=== PATIENT | male | born 1970 | race Caucasian/White ===

== ENCOUNTER 2017-07-24 07:53 | Emergency (ER) | payer BC ==
[2017-07-24] MEDS ORDERED: Acetaminophen/oxyCODONE 325-10 MG Tab PO ONE (08:22)
--- NOTE | 2017-07-24 08:28 | EDM.PDOC ---
ED HPI GENERAL MEDICAL PROBLEM - General Chief Complaint: Lower Extremity Injury/Pain Stated Complaint: RIGHT FOOT PAIN Time Seen by Provider: 07/24/17 08:20 - History of Present Illness INITIAL COMMENTS - FREE TEXT/NARRATIVE: HISTORY AND PHYSICAL: History of present illness: The patient is a 47-year-old male with a known history of a transmetatarsal amputation in the past of the right foot who has chronic pain issues with respect to that and follows at [facility] with Dr. Emanuel; he was referred to the pain clinic at [facility] and has not been able to connect there and presents today because he ran out of his oxycodone earlier than his prescription refill. Patient says that his provider has been clear that he will not renew the prescription earlier and he is here for some pain relief. He says he has not been sleeping last couple of days due to the pain. He has used other medications in the past such as Lyrica and Neurontin and none of those have worked. He has no new injury to the foot and no systemic complaints Review of systems: As per history of present illness and below otherwise all systems reviewed and negative. Past medical history: As per history of present illness and as reviewed below otherwise noncontributory. Surgical history: As per history of present illness and as reviewed below otherwise noncontributory. Social history: No reported history of drug or alcohol abuse. Family history: As per history of present illness and as reviewed below otherwise noncontributory. Physical exam: Gen.: Well-developed well-nourished man who is nontoxic and vital signs have been reviewed by me HEENT: Atraumatic, normocephalic, negative for conjunctival pallor or scleral icterus, mucous membranes moist, throat clear, neck supple, nontender, trachea midline. Lungs: Clear to auscultation, breath sounds equal bilaterally, chest nontender. Heart: S1S2, regular rate and rhythm no overt murmurs Abdomen: Soft, nondistended, nontender. NABS Pelvis: Deferred Genitourinary: Deferred. Rectal: Deferred. Extremities: Atraumatic with full range of motion of all extremities with the exception of the right foot where there is a visible prior transmetatarsal amputation and the scar there is thickened with callus but no erythema warmth fluctuance or skin breakdown is visualized. Pulses are good and color is good otherwise. There is diffuse tenderness of the foot without any one specific area of soft tissue defect or deformity. No crepitus. The legs are, negative for cords or calf pain. Neurovascular unremarkable. Neuro: Awake, alert, oriented. Cranial nerves II through XII unremarkable. Cerebellum unremarkable. Motor and sensory unremarkable throughout. Exam nonfocal. Diagnostics: [] Therapeutics: Percocet The patient tells me that he does have an appointment with his provider on Thursday and I have been very clear with him that I cannot write prescriptions for chronic pain patients and that he would need to have a discussion with his provider about this. In the interim until he can get connected with the pain physician is provider at [facility] is functioning as his pain doctor and needs to be the one writing prescriptions. The patient states understanding and I told him that I can give him a Percocet here to get through the next couple of hours and we will try to move his appointment up but advised the patient that if we are unable to do so that he should keep his appointment on Thursday Impression: Chronic right foot pain Definitive disposition and diagnosis as appropriate pending reevaluation and review of above. Right Foot Phantom Pain Pain Score (Numeric/FACES): 10 - Related Data Allergies Allergy/AdvReac Type Severity Reaction Status Date / Time hydromorphone [From Dilaudid] Allergy Hallucinati Verified 07/24/17 08:13 ons Home Meds: Home Meds Hydrochlorothiazide 25 mg PO DAILY 03/01/14 [History] Lisinopril 10 mg PO DAILY 03/01/14 [History] amLODIPine [Norvasc] 10 mg PO DAILY 03/01/14 [History] metFORMIN HCl [Metformin HCl ER] 500 mg PO DAILY 03/01/14 [History] oxyCODONE HCl [Oxycontin] 15 mg PO Q6HR PRN 03/01/14 [History] Carvedilol [Carvedilol] 25 mg PO BID 07/24/17 [History] Past Medical History HEENT History: Reports: None Cardiovascular History: Reports: Hypertension Respiratory History: Reports: None Gastrointestinal History: Reports: None Genitourinary History: Reports: None Musculoskeletal History: Reports: Amputation, Arthritis, Fracture Other Musculoskeletal History: osteomyelitis Neurological History: Reports: Concussion, Head Trauma Psychiatric History: Reports: Addiction, Anxiety Endocrine/Metabolic History: Reports: Diabetes, Type II Dermatologic History: Reports: Cellulitis, Chronic Cellulitis - Infectious Disease History 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 - Past Surgical History Head Surgeries/Procedures: Reports: None Musculoskeletal Surgical History: Reports: Amputation Other Musculoskeletal Surgeries/Procedures:: right transverse metatarsal amputation Social & Family History - Family History HEENT: Reports: None - Tobacco Use Smoking Status *Q: Former Smoker Years of Tobacco use: 20 Used Tobacco, but Quit: No Second Hand Smoke Exposure: No - Alcohol Use Days Per Week of Alcohol Use: 0 - Recreational Drug Use Recreational Drug Use: No Review of Systems - Review of Systems Review Of Systems: ROS reveals no pertinent complaints other than HPI. ED EXAM, GENERAL - Physical Exam Exam: See Below (See dictation) Course - Vital Signs Last Recorded V/S: Last Vital Signs Temp 36.7 C 07/24/17 08:15 Pulse 88 07/24/17 08:15 Resp 18 07/24/17 08:15 BP 183/99 H 07/24/17 08:15 Pulse Ox 97 07/24/17 08:15 - Orders/Labs/Meds Orders: Active Orders 24 hr Category Date Time Status Acetaminophen/oxyCODONE [Percocet 325-10 MG] Med 07/24/17 08:22 Once 1 tab PO ONETIME ONE Departure - Departure Time of Disposition: 08:27 Disposition: Home, Self-Care 01 Condition: Good Clinical Impression: Chronic foot pain Qualifiers: Laterality: right Qualified Code(s): M79.671 - Pain in right foot; G89.29 - Other chronic pain; G89.29 - Other chronic pain - Discharge Information Referrals: Tc Emanuel MD [Primary Care Provider] - Additional Instructions: The following information is given to patients seen in the emergency department who are being discharged to home. This information is to outline your options for follow-up care. We provide all patients seen in our emergency department with a follow-up referral. The need for follow-up, as well as the timing and circumstances, are variable depending upon the specifics of your emergency department visit. If you don't have a primary care physician on staff, we will provide you with a referral. We always advise you to contact your personal physician following an emergency department visit to inform them of the circumstance of the visit and for follow-up with them and/or the need for any referrals to a consulting specialist. The emergency department will also refer you to a specialist when appropriate. This referral assures that you have the opportunity for followup care with a specialist. All of these measure are taken in an effort to provide you with optimal care, which includes your followup. Under all circumstances we always encourage you to contact your private physician who remains a resource for coordinating your care. When calling for followup care, please make the office aware that this follow-up is from your recent emergency room visit. If for any reason you are refused follow-up, please contact the [facility] emergency department at and ask to speak to the emergency department charge nurse. [address] [place] [address] Please keep your appointment with your provider at [facility] on Thursday and return to ER as needed and as discussed. - My Orders Last 24 Hours: My Active Orders 07/24/17 08:22 Acetaminophen/oxyCODONE [Percocet 325-10 MG] 1 tab PO ONETIME ONE - Assessment/Plan Last 24 Hours: My Active Orders 07/24/17 08:22 Acetaminophen/oxyCODONE [Percocet 325-10 MG] 1 tab PO ONETIME ONE
[2017-07-24 08:39] VITALS: BP 159/85
== END 2017-07-24 08:41 | disposition home or self-care (01) ==
LOC: MW.ED 07:53
DX: G89.29 Other chronic pain (principal); M79.671 Pain in right foot; I10 Essential (primary) hypertension; E11.9 Type 2 diabetes mellitus without complications; Z79.84 Long term (current) use of oral hypoglycemic drugs; Z79.899 Other long term (current) drug therapy; Z88.5 Allergy status to narcotic agent; Z87.891 Personal history of nicotine dependence; Z98.890 Other specified postprocedural states
CPT/HCPCS: 99282; A9270; 99283

== ENCOUNTER 2017-08-16 10:47 | Emergency (ER) | payer BC ==
--- NOTE | 2017-08-16 11:12 | EDM.PDOC ---
ED HPI GENERAL MEDICAL PROBLEM - General Chief Complaint: Lower Extremity Injury/Pain Stated Complaint: FOOT PAIN Time Seen by Provider: 08/16/17 11:04 - History of Present Illness INITIAL COMMENTS - FREE TEXT/NARRATIVE: HISTORY AND PHYSICAL: History of present illness: Patient is a 47-year-old male with history diabetes who's had right forefoot amputation and presents with concern of discoloration and discomfort of the fourth digit of the left foot this started with a blister 1-2 weeks prior he is here just for screening pending follow-up with his private doctor and podiatry as discussed there's been no fever chills nausea vomiting or other complaints. Review of systems: As per history of present illness and below otherwise all systems reviewed and negative. Past medical history: As per history of present illness and as reviewed below otherwise noncontributory. Surgical history: As per history of present illness and as reviewed below otherwise noncontributory. Social history: No reported history of drug or alcohol abuse. Family history: As per history of present illness and as reviewed below otherwise noncontributory. Physical exam: HEENT: Atraumatic, normocephalic, pupils reactive, negative for conjunctival pallor or scleral icterus, mucous membranes moist, throat clear, neck supple, nontender, trachea midline. Lungs: Clear to auscultation, breath sounds equal bilaterally, chest nontender. Heart: S1S2, regular, negative for clicks, rubs, or JVD. Abdomen: Soft, nondistended, nontender. Negative for masses or hepatosplenomegaly. Negative for costovertebral tenderness. Pelvis: Stable nontender. Genitourinary: Deferred. Rectal: Deferred. Extremities: Amputation right forefoot noted left foot he has a fourth digit it is discoloration and excoriated area on the volar aspect of the tip of the fourth digit neurovascular exam is unremarkable there is no malodor no fluctuance minimal erythema Neuro: Awake, alert, oriented. Cranial nerves II through XII unremarkable. Cerebellum unremarkable. Motor and sensory unremarkable throughout. Exam nonfocal. Diagnostics: CBC CMP x-ray left foot Therapeutics: None Impression: #1 diabetic foot Definitive disposition and diagnosis as appropriate pending reevaluation and review of above. Left 3-Middle finger Pain Score (Numeric/FACES): 8 - Related Data Allergies Allergy/AdvReac Type Severity Reaction Status Date / Time hydromorphone [From Dilaudid] Allergy Hallucinati Verified 08/16/17 11:08 ons Home Meds: Home Meds Hydrochlorothiazide 25 mg PO DAILY 03/01/14 [History] Lisinopril 10 mg PO DAILY 03/01/14 [History] amLODIPine [Norvasc] 10 mg PO DAILY 03/01/14 [History] metFORMIN HCl [Metformin HCl ER] 500 mg PO DAILY 03/01/14 [History] oxyCODONE HCl [Oxycontin] 15 mg PO Q6HR PRN 03/01/14 [History] Carvedilol [Carvedilol] 25 mg PO BID 07/24/17 [History] Past Medical History HEENT History: Reports: None Cardiovascular History: Reports: Hypertension Respiratory History: Reports: None Gastrointestinal History: Reports: None Genitourinary History: Reports: None Musculoskeletal History: Reports: Amputation, Arthritis, Fracture Other Musculoskeletal History: osteomyelitis Neurological History: Reports: Concussion, Head Trauma Psychiatric History: Reports: Addiction, Anxiety Endocrine/Metabolic History: Reports: Diabetes, Type II Dermatologic History: Reports: Cellulitis, Chronic Cellulitis - Infectious Disease History 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 - Past Surgical History Head Surgeries/Procedures: Reports: None Musculoskeletal Surgical History: Reports: Amputation Other Musculoskeletal Surgeries/Procedures:: right transverse metatarsal amputation Social & Family History - Family History Family Medical History: Noncontributory HEENT: Reports: None - Tobacco Use Smoking Status *Q: Former Smoker Years of Tobacco use: 20 Used Tobacco, but Quit: No Second Hand Smoke Exposure: No - Caffeine Use Caffeine Use: Reports: None - Alcohol Use Days Per Week of Alcohol Use: 0 - Recreational Drug Use Recreational Drug Use: No Review of Systems - Review of Systems Review Of Systems: ROS reveals no pertinent complaints other than HPI. ED EXAM, GENERAL - Physical Exam Exam: See Below (See dictation) Course - Vital Signs Last Recorded V/S: Last Vital Signs Temp 35.9 C 08/16/17 11:03 Pulse 63 08/16/17 11:03 Resp 18 08/16/17 11:03 BP 132/81 08/16/17 11:03 Pulse Ox 96 08/16/17 11:03 - Orders/Labs/Meds Orders: Active Orders 24 hr Category Date Time Status Foot 2V Lt [CR] Stat Exams 08/16/17 11:07 Ordered CBC WITH AUTO DIFF [HEME] Stat Lab 08/16/17 11:06 Ordered COMPREHENSIVE METABOLIC PN,CMP [CHEM] Stat Lab 08/16/17 11:06 Ordered Departure - Departure Time of Disposition: 11:11 Disposition: Home, Self-Care 01 Condition: Good Clinical Impression: Diabetic foot - Discharge Information Referrals: Tc Emanuel MD [Primary Care Provider] - Additional Instructions: The following information is given to patients seen in the emergency department who are being discharged to home. This information is to outline your options for follow-up care. We provide all patients seen in our emergency department with a follow-up referral. The need for follow-up, as well as the timing and circumstances, are variable depending upon the specifics of your emergency department visit. If you don't have a primary care physician on staff, we will provide you with a referral. We always advise you to contact your personal physician following an emergency department visit to inform them of the circumstance of the visit and for follow-up with them and/or the need for any referrals to a consulting specialist. The emergency department will also refer you to a specialist when appropriate. This referral assures that you have the opportunity for followup care with a specialist. All of these measure are taken in an effort to provide you with optimal care, which includes your followup. Under all circumstances we always encourage you to contact your private physician who remains a resource for coordinating your care. When calling for followup care, please make the office aware that this follow-up is from your recent emergency room visit. If for any reason you are refused follow-up, please contact the [facility] emergency department at and asked to speak to the emergency department charge nurse. [facility] - Podiatry [address] [place] [id number] Fax: [phone] Bactrim clindamycin as prescribed follow-up private medical doctor/podiatry 1-2 days return as needed as discussed - My Orders Last 24 Hours: My Active Orders 08/16/17 11:06 CBC WITH AUTO DIFF [HEME] Stat COMPREHENSIVE METABOLIC PN,CMP [CHEM] Stat 08/16/17 11:07 Foot 2V Lt [CR] Stat - Assessment/Plan Last 24 Hours: My Active Orders 08/16/17 11:06 CBC WITH AUTO DIFF [HEME] Stat COMPREHENSIVE METABOLIC PN,CMP [CHEM] Stat 08/16/17 11:07 Foot 2V Lt [CR] Stat
[2017-08-16 11:53] LABS: CHLORIDE,CL 103 mmol/L (98-110); SODIUM,NA 138 mmol/L (136-146)
[2017-08-16 12:53] VITALS: BP 138/79
--- NOTE | 2017-08-17 16:06 | CR ---
EXAM DATE: 08/16/17 PATIENT'S AGE: 47 Patient: SANFORD GALVAN Facility: [place], [place] Site . Site : [id number] Study: XRay Extremity Left foot [id number]/28/[id number] 11:45:31 AM Ordering Physician: Dane Ruiz Final Report: INDICATION: Pain. Technique two-views. FINDINGS: There is no fracture identified. Mild swelling of the 3rd digit, nonspecific. Variable degenerative narrowing of the MRI TEP joints, especially 1st and 2nd. Mild soft tissue swelling dorsum of the foot, nonspecific. IMPRESSION: No acute bony abnormality visualized on these portable views. Consider complete left foot radiographic series, if indicated. Mild soft tissue swelling of the 3rd digit and dorsum of the foot. Degenerative narrowing at the 1st and 2nd MTP joints. Dictated by Raleigh Henry MD @ Aug 16 2017 12:02PM (Electronic Signature) Report Signed by Proxy. MARIANGEL
== END 2017-08-16 12:30 | disposition home or self-care (01) ==
LOC: MW.ED 10:47
DX: E11.621 Type 2 diabetes mellitus with foot ulcer (principal); I10 Essential (primary) hypertension; Z88.5 Allergy status to narcotic agent; Z79.899 Other long term (current) drug therapy; Z87.891 Personal history of nicotine dependence; Z89.431 Acquired absence of right foot
CPT/HCPCS: 36415; 73620-26-LT; 73620-LT; 80053; 85025; 99283

== ENCOUNTER 2018-12-19 15:13 | Emergency (ER) | payer BC ==
[2018-12-19] MEDS ORDERED: Sodium Chloride 0.9% 10 ML Syringe FLUSH PRN (15:22)
[2018-12-19] MEDS ORDERED: Sodium Chloride 0.9% 2.5 ML Syringe FLUSH PRN (15:22)
--- NOTE | 2018-12-19 15:35 | EDM.PDOC ---
ED HPI GENERAL MEDICAL PROBLEM - General Chief Complaint: Skin Complaint Stated Complaint: INFECTION AT SITE OF RT FOOT AMPUTATION Time Seen by Provider: 12/19/18 15:17 Source of Information: Reports: Patient History Limitations: Reports: No Limitations - History of Present Illness INITIAL COMMENTS - FREE TEXT/NARRATIVE: HISTORY AND PHYSICAL: History of present illness: Patient is a 48-year-old male who presents to the emergency room with complaints of infection to the right foot. 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 Typically does wear a prosthetic. Yesterday he noted some redness around a callus that he typically has. This morning he was able to express some drainage from the calloused area. Patient is a type II diabetic, stating that his blood sugars have been "really good". Patient denies any fever , chills, headache, change in vision, syncope or near syncope. Denies any chest pain, back pain, shortness of breath or cough. Denies any abdominal pain, nausea , vomiting, diarrhea, constipation or dysuria. Has not noted any blood in urine or stool. Patient has been eating and drinking appropriately. Review of systems: As per history of present illness and below otherwise all systems reviewed and negative. Past medical history: As per history of present illness and as reviewed below otherwise noncontributory. Surgical history: As per history of present illness and as reviewed below otherwise noncontributory. Social history: See social history for further information Family history: As per history of present illness and as reviewed below otherwise noncontributory. Physical exam: General: Well-developed and well-nourished 48-year-old male. Alert and oriented. Nontoxic appearing and in no acute distress. HEENT: Atraumatic, normocephalic, pupils equal and reactive bilaterally, negative for conjunctival pallor or scleral icterus, mucous membranes moist, TMs normal bilaterally, throat clear, neck supple, nontender, trachea midline. No drooling or trismus noted. No meningeal signs. No hot potato voice noted. Lungs: Clear to auscultation, breath sounds equal bilaterally, chest nontender. Heart: S1S2, regular rate and rhythm without overt murmur Abdomen: Soft, nondistended, nontender. Negative for masses or hepatosplenomegaly. Negative for costovertebral tenderness. Pelvis: Stable nontender. Genitourinary: Deferred. Rectal: Deferred. Skin: Mid foot amputation to the right. He does have a linear callus to the plantar surface of the distal foot. There is some surrounding erythema. Otherwise skin is intact, warm, dry. No lesions or rashes noted. Extremities: Atraumatic, moves all extremities per self without difficulty or deficits, negative for cords or calf pain. Neurovascular unremarkable. Neuro: Awake, alert, oriented. Cranial nerves II through XII unremarkable. Cerebellum unremarkable. Motor and sensory unremarkable throughout. Exam nonfocal. Notes: X-ray shows amputation of the 1st through 5th toes at the level of the proximal/ mid metatarsals. No acute findings. Lab work is unremarkable. Patient states he would like to be discharged home with oral antibiotics. He states he will follow up with Dr. Storm next week. Signs and symptoms that would prompt him to return to the emergency room were reviewed and discussed. Supportive care measures were reviewed and discussed. Voices understanding and is agreeable to plan of care. Denies any further questions or concerns at this time. Diagnostics: CBC, CMP, lactic, foot x-ray, wound culture, blood culture Therapeutics: None Prescription: Clindamycin [place] Impression: Diabetic foot infection Plan: 1. Keep your skin clean and dry. Continue to monitor for signs of improvement 2. Take the antibiotic as directed. 3. Follow up with podiatry as we discussed. Return to the ED as needed and as discussed. Definitive disposition and diagnosis as appropriate pending reevaluation and review of above. right foot Pain Score (Numeric/FACES): 9 - Related Data Allergies Allergy/AdvReac Type Severity Reaction Status Date / Time hydromorphone [From Dilaudid] Allergy Hallucinati Verified 08/16/17 11:08 ons Home Meds: Home Meds Lisinopril 10 mg PO DAILY 03/01/14 [History] amLODIPine [Norvasc] 10 mg PO DAILY 03/01/14 [History] hydroCHLOROthiazide [Hydrochlorothiazide] 25 mg PO DAILY 03/01/14 [History] metFORMIN HCl [Metformin ER Osmotic] 500 mg PO DAILY 03/01/14 [History] Carvedilol 25 mg PO BID 07/24/17 [History] traMADol HCl [Tramadol HCl] 50 mg PO Q6H PRN 08/16/17 [History] Acetaminophen/HYDROcodone [[place] 325-5 MG] 1 dose PO Q4H PRN #15 tablet [Rx] Clindamycin HCl [Cleocin HCl] 300 mg PO TID 10 Days #30 capsule 12/19/18 [Rx] Past Medical History HEENT History: Reports: None Cardiovascular History: Reports: Hypertension Respiratory History: Reports: None Gastrointestinal History: Reports: None Genitourinary History: Reports: None Musculoskeletal History: Reports: Amputation, Arthritis, Fracture Other Musculoskeletal History: osteomyelitis Neurological History: Reports: Concussion, Head Trauma Psychiatric History: Reports: Addiction, Anxiety Endocrine/Metabolic History: Reports: Diabetes, Type II Dermatologic History: Reports: Cellulitis, Chronic Cellulitis - Infectious Disease History 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 - Past Surgical History Head Surgeries/Procedures: Reports: None Musculoskeletal Surgical History: Reports: Amputation Other Musculoskeletal Surgeries/Procedures:: right transverse metatarsal amputation Social & Family History - Family History Family Medical History: Noncontributory HEENT: Reports: None - Caffeine Use Caffeine Use: Reports: None ED ROS GENERAL - Review of Systems Review Of Systems: ROS reveals no pertinent complaints other than HPI. ED EXAM, SKIN/RASH Exam: See Below (See dictation) Course - Vital Signs Last Recorded V/S: Last Vital Signs Temp 97.7 F 12/19/18 15:28 Pulse 81 12/19/18 15:28 Resp 16 12/19/18 15:28 BP 148/87 H 12/19/18 15:28 Pulse Ox 98 12/19/18 15:28 - Orders/Labs/Meds Orders: Active Orders 24 hr Category Date Time Status CULTURE BLOOD [BC] Stat Lab 12/19/18 15:39 Received CULTURE BLOOD [BC] Stat Lab 12/19/18 15:51 Ordered CULTURE WOUND [RM] Stat Lab 12/19/18 15:48 Ordered Sodium Chloride 0.9% [Saline Flush] Med 12/19/18 15:22 Active 10 ml FLUSH ASDIRECTED PRN Sodium Chloride 0.9% [Saline Flush] Med 12/19/18 15:22 Active 2.5 ml FLUSH ASDIRECTED PRN Blood Culture x2 Reflex Set [OM.PC] Stat Oth 12/19/18 15:51 Ordered Saline Lock Insert [OM.PC] Stat Oth 12/19/18 15:22 Ordered Medication Orders Sodium Chloride (Saline Flush) 10 ml FLUSH ASDIRECTED PRN PRN Reason: Keep Vein Open Sodium Chloride (Saline Flush) 2.5 ml FLUSH ASDIRECTED PRN PRN Reason: Keep Vein Open Labs: Laboratory Tests 12/19/18 12/19/18 12/19/18 Range/Units 15:39 15:39 15:39 WBC 8.73 (4.0-11.0) K/uL RBC 4.46 L (4.50-5.90) M/uL Hgb 12.9 L (13.0-17.0) g/dL Hct 38.8 (38.0-50.0) % MCV 87.0 (80.0-98.0) fL MCH 28.9 (27.0-32.0) pg MCHC 33.2 (31.0-37.0) g/dL RDW Std Deviation 40.3 (28.0-62.0) fl RDW Coeff of [place] 13 (11.0-15.0) % Plt Count 234 (150-400) K/uL MPV 10.20 (7.40-12.00) fL Neut % (Auto) 56.3 (48.0-80.0) % Lymph % (Auto) 30.1 (16.0-40.0) % [place] % (Auto) 11.2 (0.0-15.0) % Eos % (Auto) 1.8 (0.0-7.0) % Baso % (Auto) 0.6 (0.0-1.5) % Neut # (Auto) 4.9 (1.4-5.7) K/uL Lymph # (Auto) 2.6 H (0.6-2.4) K/uL [place] # (Auto) 1.0 H (0.0-0.8) K/uL Eos # (Auto) 0.2 (0.0-0.7) K/uL Baso # (Auto) 0.1 (0.0-0.1) K/uL Nucleated RBC % 0.0 /100WBC Nucleated RBCs # 0 K/uL Lactate 1.0 (0.20-2.00) mmol/L Sodium 140 (136-148) mmol/L Potassium 3.4 L (3.5-5.1) mmol/L Chloride 102 (98-107) mmol/L Carbon Dioxide 32.9 H (21.0-32.0) mmol/L BUN 24 H (7.0-18.0) mg/dL Creatinine 0.8 (0.8-1.3) mg/dL Est Cr Clr Drug Dosing 115.33 mL/min Estimated GFR (MDRD) > 60.0 ml/min Glucose 131 H (74-106) mg/dL Calcium 9.0 (8.5-10.1) mg/dL Total Bilirubin 0.4 (0.2-1.0) mg/dL AST 26 (15-37) IU/L ALT 55 (14-63) IU/L Alkaline Phosphatase 114 (46-116) U/L Total Protein 7.7 (6.4-8.2) g/dL Albumin 3.8 (3.4-5.0) g/dL Globulin 3.9 (2.6-4.0) g/dL Albumin/Globulin Ratio 1.0 (0.9-1.6) Meds: Medications Generic Name Dose Route Start Last Admin Trade Name Freq PRN Reason Stop Dose Admin Sodium Chloride 10 ml 12/19/18 15:22 Saline Flush FLUSH ASDIRECTED PRN Keep Vein Open Sodium Chloride 2.5 ml 12/19/18 15:22 Saline Flush FLUSH ASDIRECTED PRN Keep Vein Open Departure - Departure Time of Disposition: 16:10 Disposition: Home, Self-Care 01 Clinical Impression: Diabetic foot infection - Discharge Information Prescriptions: Acetaminophen/HYDROcodone [[place] 325-5 MG] 1 dose PO Q4H PRN #15 tablet PRN Reason: Pain Clindamycin HCl [Cleocin HCl] 300 mg PO TID 10 Days #30 capsule Instructions: Cellulitis, Adult, [id number] Referrals: Tc Emanuel MD [Primary Care Provider] - Forms: ED Department Discharge Additional Instructions: The following information is given to patients seen in the emergency department who are being discharged to home. This information is to outline your options for follow-up care. We provide all patients seen in our emergency department with a follow-up referral. The need for follow-up, as well as the timing and circumstances, are variable depending upon the specifics of your emergency department visit. If you don't have a primary care physician on staff, we will provide you with a referral. We always advise you to contact your personal physician following an emergency department visit to inform them of the circumstance of the visit and for follow-up with them and/or the need for any referrals to a consulting specialist. The emergency department will also refer you to a specialist when appropriate. This referral assures that you have the opportunity for follow-up care with a specialist. All of these measure are taken in an effort to provide you with optimal care, which includes your follow-up. Under all circumstances we always encourage you to contact your private physician who remains a resource for coordinating your care. When calling for follow-up care, please make the office aware that this follow-up is from your recent emergency room visit. If for any reason you are refused follow-up, please contact the [facility] Emergency Department at and asked to speak to the emergency department charge nurse. [facility] [address] [place] [id number] [address] 1. Keep your skin clean and dry. Continue to monitor for signs of improvement 2. Take the antibiotic as directed. 3. Follow up with podiatry as we discussed. Return to the ED as needed and as discussed. - My Orders Last 24 Hours: My Active Orders 12/19/18 15:22 Sodium Chloride 0.9% [Saline Flush] 10 ml FLUSH ASDIRECTED PRN Sodium Chloride 0.9% [Saline Flush] 2.5 ml FLUSH ASDIRECTED PRN Saline Lock Insert [OM.PC] Stat 12/19/18 15:39 CULTURE BLOOD [BC] Stat 12/19/18 15:48 CULTURE WOUND [RM] Stat 12/19/18 15:51 CULTURE BLOOD [BC] Stat Blood Culture x2 Reflex Set [OM.PC] Stat - Assessment/Plan Last 24 Hours: My Active Orders 12/19/18 15:22 Sodium Chloride 0.9% [Saline Flush] 10 ml FLUSH ASDIRECTED PRN Sodium Chloride 0.9% [Saline Flush] 2.5 ml FLUSH ASDIRECTED PRN Saline Lock Insert [OM.PC] Stat 12/19/18 15:39 CULTURE BLOOD [BC] Stat 12/19/18 15:48 CULTURE WOUND [RM] Stat 12/19/18 15:51 CULTURE BLOOD [BC] Stat Blood Culture x2 Reflex Set [OM.PC] Stat
[2018-12-19 15:42] VITALS: BP 148/87
--- NOTE | 2018-12-19 15:49 | CR ---
Indication: Foot infection. Technique: Three views of the right foot were obtained. Comparison: None Findings: Amputation of the 1st through 5th metatarsals is identified at the level of the proximal/mid metatarsals. No bone erosions are identified. Mild degenerative changes are seen. Impression: Amputation of the 1st through 5th toes at the level of the proximal/mid metatarsals. Dictated by Kim Mathew MD @ Dec 19 2018 3:46PM Signed by Dr. Kim Mathew @ Dec 19 2018 3:47PM
[2018-12-19 16:25] LABS: CHLORIDE,CL 102 mmol/L (98-107); SODIUM,NA 140 mmol/L (136-148)
== END 2018-12-19 16:42 | disposition home or self-care (01) ==
LOC: MW.ED 15:13
DX: E11.628 Type 2 diabetes mellitus with other skin complications (principal); L08.9 Local infection of the skin and subcutaneous tissue, unspecified; L84 Corns and callosities; I10 Essential (primary) hypertension; M19.90 Unspecified osteoarthritis, unspecified site; Z89.431 Acquired absence of right foot; Z79.84 Long term (current) use of oral hypoglycemic drugs; Z88.8 Allergy status to other drugs, medicaments and biological substances; Z79.899 Other long term (current) drug therapy
CPT/HCPCS: 36415; 73630-26-RT; 73630-RT; 80053; 83605; 85025; 87040; 87070; 99283; 99283-25

== ENCOUNTER 2019-07-25 13:57 | Emergency (ER) | payer BC ==
[2019-07-25] MEDS ORDERED: Acetaminophen/Codeine 300-30 MG Tab PO ONE (15:18)
--- NOTE | 2019-07-25 15:38 | EDM.PDOC ---
ED HPI GENERAL MEDICAL PROBLEM - General Chief Complaint: Lower Extremity Injury/Pain Stated Complaint: COMPLICATION IN RT FOOT AMP Time Seen by Provider: 07/25/19 15:14 Source of Information: Reports: Patient History Limitations: Reports: No Limitations - History of Present Illness INITIAL COMMENTS - FREE TEXT/NARRATIVE: HISTORY AND PHYSICAL: History of present illness: Patient is a 49-year-old male who presents to the emergency room with concerns of an infection to the right lower extremity. In 2011 patient had a midfoot amputation due to diabetic complications. 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 He does pretty frequently get an infection to the distal aspect of the foot where he has a hard callus and fissure. He states he has not been on antibiotics in several months for any foot related infections. Last night he noticed a blister which he states popped and he was able to express some purulent drainage from the site. He does take tramadol for his chronic pain but states the area is more painful than normal and is concerned he needs antibiotics. He denies any new injury, trauma or falls. He denies any fever, chills, headache, change in vision, syncope or near syncope. Denies any chest pain, back pain, shortness of breath or cough. Denies any GI or symptoms. Patient has been eating and drinking appropriately. Review of systems: As per history of present illness and below otherwise all systems reviewed and negative. Past medical history: As per history of present illness and as reviewed below otherwise noncontributory. Surgical history: As per history of present illness and as reviewed below otherwise noncontributory. Social history: See social history for further information Family history: As per history of present illness and as reviewed below otherwise noncontributory. Physical exam: General: Well-developed and well-nourished 49-year-old male. Alert and oriented. Nontoxic-appearing and in no acute distress. HEENT: Atraumatic, normocephalic, pupils equal and reactive bilaterally, negative for conjunctival pallor or scleral icterus, mucous membranes moist, TMs normal bilaterally, throat clear, neck supple, nontender, trachea midline. No drooling or trismus noted. No meningeal signs. No hot potato voice noted. Lungs: Clear to auscultation, breath sounds equal bilaterally, chest nontender. Heart: S1S2, regular rate and rhythm without overt murmur Abdomen: Soft, nondistended, nontender. Skin: See extremity for details. Intact, warm, dry. No lesions or rashes noted. Extremities: Distal mid foot amputation (patient norm) -with hard callus noted to the bottom aspect of the distal foot with circular area of mild redness and tenderness approximately the size of a dime (appears like an old irritated ulceration). Moves all extremities per self without difficulty or deficits, negative for cords or calf pain. Neurovascular unremarkable. Neuro: Awake, alert, oriented. Cranial nerves II through XII unremarkable. Cerebellum unremarkable. Motor and sensory unremarkable throughout. Exam nonfocal. Notes: VSS, afebrile. X-ray shows no acute findings. We discussed needing to follow- up with podiatry for repeat evaluation and monitoring. Supportive care measures were reviewed and discussed. Voices understanding and is agreeable to plan of care. Denies any further questions or concerns at this time. Diagnostics: X-ray Therapeutics: Tylnol #3 Prescription: Keflex and [place] Impression: Diabetic foot infection Plan: 1. Keep the skin clean and dry. Continue to monitor for signs of improvement. Follow up with podiatry as we discussed. 2. Medications as prescribed. 3. Return to the ED as needed as discussed. Definitive disposition and diagnosis as appropriate pending reevaluation and review of above. R foot Pain Score (Numeric/FACES): 10 - Related Data Allergies Allergy/AdvReac Type Severity Reaction Status Date / Time hydromorphone [From Dilaudid] Allergy Hallucinati Verified 07/25/19 14:14 ons Home Meds: Home Meds Lisinopril 10 mg PO DAILY 03/01/14 [History] amLODIPine [Norvasc] 10 mg PO DAILY 03/01/14 [History] hydroCHLOROthiazide [Hydrochlorothiazide] 25 mg PO DAILY 03/01/14 [History] metFORMIN HCl [Metformin ER Osmotic] 500 mg PO DAILY 03/01/14 [History] carvediloL [Carvedilol] 25 mg PO BID 07/24/17 [History] traMADol HCl [Tramadol HCl] 50 mg PO Q6H PRN 08/16/17 [History] Acetaminophen/HYDROcodone [[place] 325-5 MG] 1 dose PO Q4H PRN #15 tablet [Rx] Clindamycin HCl [Cleocin HCl] 300 mg PO TID 10 Days #30 capsule 12/19/18 [Rx] Acetaminophen/HYDROcodone [[place] 325-5 MG] 1 dose PO Q4H #20 tablet 07/25/19 [Rx ] Clindamycin HCl 300 mg PO TID 7 Days #21 capsule 07/25/19 [Rx] Past Medical History HEENT History: Reports: None Cardiovascular History: Reports: Hypertension Respiratory History: Reports: None Gastrointestinal History: Reports: None Genitourinary History: Reports: None Musculoskeletal History: Reports: Amputation, Arthritis, Fracture Other Musculoskeletal History: osteomyelitis Neurological History: Reports: Concussion, Head Trauma Psychiatric History: Reports: Addiction, Anxiety Endocrine/Metabolic History: Reports: Diabetes, Type II Dermatologic History: Reports: Cellulitis, Chronic Cellulitis - Infectious Disease History 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, MRSA - Past Surgical History Head Surgeries/Procedures: Reports: None Musculoskeletal Surgical History: Reports: Amputation Other Musculoskeletal Surgeries/Procedures:: right transverse metatarsal amputation Social & Family History - Family History Family Medical History: Noncontributory HEENT: Reports: None - Tobacco Use Smoking Status *Q: Current Every Day Smoker Years of Tobacco use: 12 Packs/Tins Daily: 0.5 - Caffeine Use Caffeine Use: Reports: Coffee - Recreational Drug Use Recreational Drug Use: No Review of Systems - Review of Systems Review Of Systems: Comprehensive ROS is negative, except as noted in HPI. ED EXAM, GENERAL - Physical Exam Exam: See Below (See dictation) Course - Vital Signs Last Recorded V/S: Last Vital Signs Temp 98.4 F 07/25/19 14:14 Pulse 90 07/25/19 14:14 Resp 16 07/25/19 14:14 BP 147/75 H 07/25/19 14:14 Pulse Ox 96 07/25/19 14:14 - Orders/Labs/Meds Meds: Medications Discontinued Medications Generic Name Dose Route Start Last Admin Trade Name Cammy PRN Reason Stop Dose Admin Acetaminophen/Codeine Phosphate 1 tab 07/25/19 15:18 07/25/19 15:33 Tylenol With Codeine No.3 300mg/30mg PO 07/25/19 15:19 1 tab ONETIME ONE Administration Departure - Departure Time of Disposition: 16:18 Disposition: Home, Self-Care 01 Clinical Impression: Diabetic foot infection - Discharge Information Prescriptions: Acetaminophen/HYDROcodone [[place] 325-5 MG] 1 dose PO Q4H #20 tablet Clindamycin HCl 300 mg PO TID 7 Days #21 capsule Referrals: Tc Emanuel MD [Primary Care Provider] - Forms: ED Department Discharge Additional Instructions: The following information is given to patients seen in the emergency department who are being discharged to home. This information is to outline your options for follow-up care. We provide all patients seen in our emergency department with a follow-up referral. The need for follow-up, as well as the timing and circumstances, are variable depending upon the specifics of your emergency department visit. If you don't have a primary care physician on staff, we will provide you with a referral. We always advise you to contact your personal physician following an emergency department visit to inform them of the circumstance of the visit and for follow-up with them and/or the need for any referrals to a consulting specialist. The emergency department will also refer you to a specialist when appropriate. This referral assures that you have the opportunity for follow-up care with a specialist. All of these measure are taken in an effort to provide you with optimal care, which includes your follow-up. Under all circumstances we always encourage you to contact your private physician who remains a resource for coordinating your care. When calling for follow-up care, please make the office aware that this follow-up is from your recent emergency room visit. If for any reason you are refused follow-up, please contact the [facility] Emergency Department at and asked to speak to the emergency department charge nurse. [facility] [address] [place] [id number] [address] 1. Keep the skin clean and dry. Continue to monitor for signs of improvement. Follow up with podiatry as we discussed. 2. Medications as prescribed. 3. Return to the ED as needed as discussed. Sepsis Event Note - Evaluation Sepsis Screening Result: No Definite Risk - Focused Exam Vital Signs: Vital Signs Temp Pulse Resp BP Pulse Ox 07/25/19 14:14 98.4 F 90 16 147/75 H 96 Date Exam was Performed: 07/25/19 Time Exam was Performed: 16:18
--- NOTE | 2019-07-25 16:13 | CR ---
Right foot: 2 views the right foot were obtained. Comparison: Previous right foot exam of 12/19/18. Findings: Stable amputation is seen at the level of the metatarsals. No acute erosive change is seen. Small plantar spur is noted. No fracture or other bony abnormality is seen. Impression: 1. Previous amputation. 2. Nothing acute is appreciated on 2 view right foot exam. 2. No change from previous study is seen. Note: Nothing seen to indicate osteomyelitis at this time. Diagnostic code #2 This report was dictated in [place] Standard Time
[2019-07-25 16:39] VITALS: BP 146/88; PULSE 76
== END 2019-07-25 16:39 | disposition home or self-care (01) ==
LOC: MW.ED 13:57
DX: E11.69 Type 2 diabetes mellitus with other specified complication (principal); T87.43 Infection of amputation stump, right lower extremity; I10 Essential (primary) hypertension; F17.210 Nicotine dependence, cigarettes, uncomplicated; Z79.899 Other long term (current) drug therapy; Z88.5 Allergy status to narcotic agent
CPT/HCPCS: 73620; 99283; A9270

== ENCOUNTER 2019-07-29 15:01 | Emergency (ER) | payer BC ==
--- NOTE | 2019-07-29 15:58 | EDM.PDOC ---
ED HPI GENERAL MEDICAL PROBLEM - General Chief Complaint: Lower Extremity Injury/Pain Stated Complaint: PROBLEMS W/RT FOOT AMPUTATION Time Seen by Provider: 07/29/19 15:35 Source of Information: Reports: Patient History Limitations: Reports: No Limitations - History of Present Illness INITIAL COMMENTS - FREE TEXT/NARRATIVE: HISTORY AND PHYSICAL: History of present illness: Patient is a 49-year-old male presents to the ED with complaint of right foot pain. Patient has history of osteomyelitis resulting in amputation of his right toes in 2011. He states he had a sore open up on the foot last week, he was seen in the ED and had labs and x-ray which were unremarkable. He was placed on clindamycin to cover infection. He denies any erythema, warmth, or drainage from the sore. He has a follow up with PCP and podiatry next week. He states he takes tramadol as needed for pain in the foot but this time it is not helping. He was given Ridgefield when he was seen in ED and states that this did take the edge off. He states he is out of the medication and requesting a fill. Review of systems: As per history of present illness and below otherwise all systems reviewed and negative. Past medical history: As per history of present illness and as reviewed below otherwise noncontributory. Surgical history: As per history of present illness and as reviewed below otherwise noncontributory. Social history: No reported history of drug or alcohol abuse. Family history: As per history of present illness and as reviewed below otherwise noncontributory. Physical exam: General: Patient sitting comfortably in no acute distress and nontoxic appearing HEENT: Atraumatic, normocephalic, pupils reactive, negative for conjunctival pallor or scleral icterus, mucous membranes moist, throat clear, neck supple, nontender, trachea midline. No meningeal signs. Lungs: Clear to auscultation, breath sounds equal bilaterally, chest nontender. Heart: S1S2, regular, negative for clicks, rubs, or overt murmur. Abdomen: Soft, nondistended, nontender. Negative for masses or hepatosplenomegaly. Negative for costovertebral tenderness. No rigidity, rebound , guarding. Pelvis: Stable nontender. Genitourinary: Deferred. Rectal: Deferred. Extremities: Amputation of all digits to the right foot. There is a darker discoloration to the distal aspect without any drainage. There is no erythema or warmth. traumatic, negative for cords or calf pain. Neurovascular unremarkable. Neuro: Awake, alert, oriented. Cranial nerves II through XII unremarkable. Cerebellum unremarkable. Motor and sensory unremarkable throughout. Exam nonfocal. Notes: PDMP checked, patient has not received any other pain medications since his previous ER visit. Diagnostics: none Therapeutics: none Prescriptions: Ridgefield Impression: Right foot pain Plan: Take motrin and use voltaren cream as instructed You may take Ridgefield as needed for severe pain, do not take with tramadol or while driving. Avoid tylenol while taking this. Follow up with PCP and podiatry Return to ED as needed as discussed Definitive disposition and diagnosis as appropriate pending reevaluation and review of above. Right Foots Pain Score (Numeric/FACES): 10 - Related Data Allergies Allergy/AdvReac Type Severity Reaction Status Date / Time hydromorphone [From Dilaudid] Allergy Hallucinati Verified 07/29/19 15:22 ons Home Meds: Home Meds Lisinopril 10 mg PO DAILY 03/01/14 [History] amLODIPine [Norvasc] 10 mg PO DAILY 03/01/14 [History] hydroCHLOROthiazide [Hydrochlorothiazide] 25 mg PO DAILY 03/01/14 [History] metFORMIN HCl [Metformin ER Osmotic] 500 mg PO DAILY 03/01/14 [History] carvediloL [Carvedilol] 25 mg PO BID 07/24/17 [History] traMADol HCl [Tramadol HCl] 50 mg PO Q6H PRN 08/16/17 [History] Acetaminophen/HYDROcodone [Ridgefield 325-5 MG] 1 dose PO Q4H PRN #15 tablet [Rx] Clindamycin HCl [Cleocin HCl] 300 mg PO TID 10 Days #30 capsule 12/19/18 [Rx] Diclofenac Sodium [Voltaren 1% Gel] 1 applic TOP QID PRN #1 tube 07/29/19 [Rx] Hydrocodone/Acetaminophen [Ridgefield 5-325 Tablet] 1 each PO Q4HR PRN #20 tablet 05/08 [Rx] Past Medical History HEENT History: Reports: None Cardiovascular History: Reports: Hypertension Respiratory History: Reports: None Gastrointestinal History: Reports: None Genitourinary History: Reports: None Musculoskeletal History: Reports: Amputation, Arthritis, Fracture Other Musculoskeletal History: osteomyelitis Neurological History: Reports: Concussion, Head Trauma Psychiatric History: Reports: Addiction, Anxiety Endocrine/Metabolic History: Reports: Diabetes, Type II Dermatologic History: Reports: Cellulitis, Chronic Cellulitis - Infectious Disease History Infectious Disease History: Reports: MRSA - Past Surgical History Head Surgeries/Procedures: Reports: None Musculoskeletal Surgical History: Reports: Amputation Other Musculoskeletal Surgeries/Procedures:: right transverse metatarsal amputation Social & Family History - Family History Family Medical History: Noncontributory HEENT: Reports: None - Caffeine Use Caffeine Use: Reports: Coffee - Recreational Drug Use Recreational Drug Use: No Review of Systems - Review of Systems Review Of Systems: Comprehensive ROS is negative, except as noted in HPI. ED EXAM, GENERAL - Physical Exam Exam: See Below (see dictation) Course - Vital Signs Last Recorded V/S: Last Vital Signs Temp 97.1 F 07/29/19 15:24 Pulse 108 H 07/29/19 15:24 Resp 18 07/29/19 15:24 BP 156/96 H 07/29/19 15:24 Pulse Ox 97 07/29/19 15:24 Departure - Departure Time of Disposition: 15:54 Disposition: Home, Self-Care 01 Condition: Good Clinical Impression: Right foot pain - Discharge Information Prescriptions: Hydrocodone/Acetaminophen [Ridgefield 5-325 Tablet] 1 each PO Q4HR PRN #20 tablet PRN Reason: Pain (Severe 7-10) Diclofenac Sodium [Voltaren 1% Gel] 1 applic TOP QID PRN #1 tube PRN Reason: Pain Referrals: Tc Emanuel MD [Primary Care Provider] - Forms: ED Department Discharge Additional Instructions: The following information is given to patients seen in the emergency department who are being discharged to home. This information is to outline your options for follow-up care. We provide all patients seen in our emergency department with a follow-up referral. The need for follow-up, as well as the timing and circumstances, are variable depending upon the specifics of your emergency department visit. If you don't have a primary care physician on staff, we will provide you with a referral. We always advise you to contact your personal physician following an emergency department visit to inform them of the circumstance of the visit and for follow-up with them and/or the need for any referrals to a consulting specialist. The emergency department will also refer you to a specialist when appropriate. This referral assures that you have the opportunity for follow-up care with a specialist. All of these measure are taken in an effort to provide you with optimal care, which includes your follow-up. Under all circumstances we always encourage you to contact your private physician who remains a resource for coordinating your care. When calling for follow-up care, please make the office aware that this follow-up is from your recent emergency room visit. If for any reason you are refused follow-up, please contact the [facility] Emergency Department at and asked to speak to the emergency department charge nurse. [facility] [address] [place] [id number] [facility] [address] [place] [id number] Take motrin and use voltaren cream as instructed You may take [place] as needed for severe pain, do not take with tramadol or while driving. Avoid tylenol while taking this. Follow up with PCP and podiatry Return to ED as needed as discussed Sepsis Event Note - Evaluation Sepsis Screening Result: No Definite Risk - Focused Exam Vital Signs: Vital Signs Temp Pulse Resp BP Pulse Ox 07/29/19 15:24 97.1 F 108 H 18 156/96 H 97 Date Exam was Performed: 07/29/19 Time Exam was Performed: 15:58
[2019-07-29 16:08] VITALS: BP 158/76; PULSE 91
== END 2019-07-29 16:08 | disposition home or self-care (01) ==
LOC: MW.ED 15:01
DX: M79.671 Pain in right foot (principal); I10 Essential (primary) hypertension; E11.9 Type 2 diabetes mellitus without complications; M86.9 Osteomyelitis, unspecified; Z79.84 Long term (current) use of oral hypoglycemic drugs; Z79.899 Other long term (current) drug therapy; Z89.429 Acquired absence of other toe(s), unspecified side
CPT/HCPCS: 99283

== ENCOUNTER 2020-02-19 20:05 | Emergency (ER) | payer BC, OTHER ==
[2020-02-19] MEDS ORDERED: Sodium Chloride 0.9% 2.5 ML Syringe FLUSH PRN (20:15)
[2020-02-19] MEDS ORDERED: Sodium Chloride 0.9% 10 ML Syringe FLUSH PRN (20:15)
--- NOTE | 2020-02-19 20:29 | EDM.PDOC ---
ED HPI GENERAL MEDICAL PROBLEM - General Chief Complaint: Lower Extremity Injury/Pain Stated Complaint: complications of foot amputation Time Seen by Provider: 02/19/20 20:06 Source of Information: Reports: Patient History Limitations: Reports: No Limitations - History of Present Illness INITIAL COMMENTS - FREE TEXT/NARRATIVE: HISTORY AND PHYSICAL: History of present illness: Patient is a 49-year-old male who presents to the emergency room with concerns of an infection to his right lower extremity. 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 Since amputation, he does follow routinely with podiatry and has had a history of osteomyelitis and recurrent cellulitis. Over the past 1 to 2 days he has had increased pain to his right lower extremity. He has redness to bilateral lower extremities which he attributes to "sunburn". The right lower extremity does appear more erythematous with +1 edema. Chronic ulceration to the distal aspect of the amputated foot, states he has had some drainage from the site. Patient denies any fever, chills, headache, change in vision, syncope or near syncope. Denies any chest pain, back pain, shortness of breath or cough. Denies any GI or symptoms. Patient has been eating and drinking appropriately. Review of systems: As per history of present illness and below otherwise all systems reviewed and negative. Past medical history: As per history of present illness and as reviewed below otherwise noncontributory. Surgical history: As per history of present illness and as reviewed below otherwise noncontributory. Social history: See social history for further information Family history: As per history of present illness and as reviewed below otherwise noncontributory. Physical exam: General: Well-developed and well-nourished 49-year-old male. Alert and oriented. Nontoxic-appearing and in no acute distress. HEENT: Atraumatic, normocephalic, pupils equal and reactive bilaterally, negative for conjunctival pallor or scleral icterus, mucous membranes moist, trachea midline. No drooling or trismus noted. No meningeal signs. No hot potato voice noted. Lungs: Clear to auscultation, breath sounds equal bilaterally. Heart: S1S2, regular rate and rhythm without overt murmur Abdomen: Soft, nondistended, nontender. Negative for masses or hepatosplenomegaly. Negative for costovertebral tenderness. Skin: He has a hard callus noted to the distal aspect of his foot, appears to be an old ulceration, mid foot up to mid calf is erythematous. He does have a sunburn to bilateral shins. Otherwise skin is intact, warm, dry. No lesions or rashes noted. Extremities: See skin for details, distal midfoot amputation (normal patient variant), moves all extremities per self without difficulty or deficits, negative for cords or calf pain. Neurovascular unremarkable. Neuro: Awake, alert, oriented. Cranial nerves II through XII unremarkable. Cerebellum unremarkable. Motor and sensory unremarkable throughout. Exam nonfocal. Notes: X-ray shows mild swelling in the soft tissue stump for the transmetatarsal amputation which appears chronic. Irregular ankle oasis between the remnant of the second and third metatarsals. No acute bony erosion noted. No soft tissue gas. Patient does have a leukocytosis, 13.9. Discussed with patient as he is a high risk with his diabetes and open sore. I did speak with Dr. Milligan, hospitalist who is agreeable to keeping this patient for further care and management. Patient is aware and initially was agreeable to plan of care, he then informed nursing staff that he would prefer to go home. He refuses IV vancomycin or fluids. We had an in-depth conversation about leaving AGAINST MEDICAL ADVICE, including complications such as sepsis and/or . He is aware of these risks and he states he will call podiatry on Thursday and follow-up sooner. We discussed signs and symptoms that would prompt him to return to the emergency room. Patient signed out AGAINST MEDICAL ADVICE. Diagnostics: CBC, CMP, BC x 2, Lactate, Foot x-ray Therapeutics: NS at 125mls/hr, Vancomycin, Sterling Impression: Cellulitis Left AMA Plan: Observation admission to Med/Surg (REFUSED) - Left Against Medical Advices Definitive disposition and diagnosis as appropriate pending reevaluation and review of above. right leg Pain Score (Numeric/FACES): 8 - Related Data Allergies Allergy/AdvReac Type Severity Reaction Status Date / Time hydromorphone [From Dilaudid] Allergy Hallucinati Verified 02/19/20 20:13 ons Home Meds: Home Meds Lisinopril 10 mg PO DAILY 03/01/14 [History] amLODIPine [Norvasc] 10 mg PO DAILY 03/01/14 [History] hydroCHLOROthiazide [Hydrochlorothiazide] 25 mg PO DAILY 03/01/14 [History] metFORMIN HCl [Metformin ER Osmotic] 500 mg PO DAILY 03/01/14 [History] carvediloL [Carvedilol] 25 mg PO BID 07/24/17 [History] traMADol HCl [Tramadol HCl] 50 mg PO Q6H PRN 08/16/17 [History] Acetaminophen/HYDROcodone [Sterling 325-5 MG] 1 dose PO Q4H #20 tablet 02/19/20 [Rx] cephALEXin [Keflex] 500 mg PO TID 7 Days #21 cap 02/19/20 [Rx] Past Medical History HEENT History: Reports: None Cardiovascular History: Reports: Hypertension Respiratory History: Reports: None Gastrointestinal History: Reports: None Genitourinary History: Reports: None Musculoskeletal History: Reports: Amputation, Arthritis, Fracture Other Musculoskeletal History: osteomyelitis Neurological History: Reports: Concussion, Head Trauma Psychiatric History: Reports: Addiction, Anxiety Endocrine/Metabolic History: Reports: Diabetes, Type II Dermatologic History: Reports: Cellulitis, Chronic Cellulitis - Infectious Disease History Infectious Disease History: Reports: MRSA - Past Surgical History Head Surgeries/Procedures: Reports: None Musculoskeletal Surgical History: Reports: Amputation Other Musculoskeletal Surgeries/Procedures:: right transverse metatarsal amputation Social & Family History - Family History Family Medical History: Noncontributory HEENT: Reports: None - Caffeine Use Caffeine Use: Reports: Coffee Review of Systems - Review of Systems Review Of Systems: Comprehensive ROS is negative, except as noted in HPI. ED EXAM, GENERAL - Physical Exam Exam: See Below (See dictation) Course - Vital Signs Last Recorded V/S: Last Vital Signs Temp 96.3 F L 02/19/20 20:13 Pulse 92 02/19/20 20:13 Resp 19 02/19/20 20:13 BP 149/87 H 02/19/20 20:13 Pulse Ox 95 02/19/20 20:13 - Orders/Labs/Meds Orders: Active Orders 24 hr Category Date Time Status Admission Status [Patient Status] [ADT] Stat ADT 02/19/20 21:07 Ordered CORONAVIRUS COVID-19 PCR PHL Stat Lab 02/19/20 21:08 Ordered CULTURE BLOOD [BC] Stat Lab 02/19/20 20:20 Received CULTURE BLOOD [BC] Stat Lab 02/19/20 20:30 Received Sodium Chloride 0.9% [Normal Saline] 1,000 ml Med 02/19/20 21:17 Ordered IV STAT Sodium Chloride 0.9% [Saline Flush] Med 02/19/20 20:15 Active 10 ml FLUSH ASDIRECTED PRN Sodium Chloride 0.9% [Saline Flush] Med 02/19/20 20:15 Active 2.5 ml FLUSH ASDIRECTED PRN Blood Culture x2 Reflex Set [OM.PC] Stat Oth 02/19/20 20:15 Ordered Saline Lock Insert [OM.PC] Stat Oth 02/19/20 20:15 Ordered Medication Orders Sodium Chloride (Normal Saline) 1,000 mls @ 125 mls/hr IV STAT ONE Stop: 02/20/20 05:16 Sodium Chloride (Saline Flush) 10 ml FLUSH ASDIRECTED PRN PRN Reason: Keep Vein Open Sodium Chloride (Saline Flush) 2.5 ml FLUSH ASDIRECTED PRN PRN Reason: Keep Vein Open Labs: Laboratory Tests 02/19/20 02/19/20 02/19/20 Range/Units 20:20 20:20 20:20 WBC 13.98 H (4.0-11.0) K/uL RBC 4.67 (4.50-5.90) M/uL Hgb 13.4 (13.0-17.0) g/dL Hct 40.0 (38.0-50.0) % MCV 85.7 (80.0-98.0) fL MCH 28.7 (27.0-32.0) pg MCHC 33.5 (31.0-37.0) g/dL RDW Std Deviation 40.5 (28.0-62.0) fl RDW Coeff of [place] 13 (11.0-15.0) % Plt Count 264 (150-400) K/uL MPV 9.90 (7.40-12.00) fL Neut % (Auto) 76.5 (48.0-80.0) % Lymph % (Auto) 13.9 L (16.0-40.0) % [place] % (Auto) 8.4 (0.0-15.0) % Eos % (Auto) 1.0 (0.0-7.0) % Baso % (Auto) 0.2 (0.0-1.5) % Neut # (Auto) 10.7 H (1.4-5.7) K/uL Lymph # (Auto) 1.9 (0.6-2.4) K/uL [place] # (Auto) 1.2 H (0.0-0.8) K/uL Eos # (Auto) 0.1 (0.0-0.7) K/uL Baso # (Auto) 0.0 (0.0-0.1) K/uL Nucleated RBC % 0.0 /100WBC Nucleated RBCs # 0 K/uL Lactate 1.2 (0.20-2.00) mmol/L Sodium 135 L (136-148) mmol/L Potassium 3.8 (3.5-5.1) mmol/L Chloride 96 L (98-107) mmol/L Carbon Dioxide 29.7 (21.0-32.0) mmol/L BUN 22 H (7.0-18.0) mg/dL Creatinine 1.2 (0.8-1.3) mg/dL Est Cr Clr Drug Dosing 78.44 mL/min Estimated GFR (MDRD) > 60.0 ml/min Glucose 146 H (74-106) mg/dL Calcium 8.6 (8.5-10.1) mg/dL Total Bilirubin 0.5 (0.2-1.0) mg/dL AST 19 (15-37) IU/L ALT 37 (14-63) IU/L Alkaline Phosphatase 106 (46-116) U/L Total Protein 8.7 H (6.4-8.2) g/dL Albumin 4.0 (3.4-5.0) g/dL Globulin 4.7 H (2.6-4.0) g/dL Albumin/Globulin Ratio 0.9 (0.9-1.6) Meds: Medications Generic Name Dose Route Start Last Admin Trade Name Freq PRN Reason Stop Dose Admin Sodium Chloride 1,000 mls @ 125 mls/hr 02/19/20 21:17 Normal Saline IV 02/20/20 05:16 STAT ONE Sodium Chloride 10 ml 02/19/20 20:15 Saline Flush FLUSH ASDIRECTED PRN Keep Vein Open Sodium Chloride 2.5 ml 02/19/20 20:15 Saline Flush FLUSH ASDIRECTED PRN Keep Vein Open Discontinued Medications Generic Name Dose Route Start Last Admin Trade Name Freq PRN Reason Stop Dose Admin Hydrocodone Bitart/Acetaminophen 1 tab 02/19/20 21:08 Sterling 325-5 Mg PO 02/19/20 21:09 ONETIME ONE Cephalexin 500 mg 02/19/20 21:18 Keflex PO 02/19/20 21:19 ONETIME ONE Vancomycin HCl 1 gm/ Sodium 250 mls @ 166 mls/hr 02/19/20 21:08 Chloride IV 02/19/20 22:38 ONETIME ONE Departure - Departure Time of Disposition: 21:24 Disposition: Against Medical Advice 07 Clinical Impression: Left against medical advice Cellulitis Qualifiers: Site of cellulitis: extremity Site of cellulitis of extremity: lower extremity Laterality: right Qualified Code(s): L03.115 - Cellulitis of right lower limb - Discharge Information Prescriptions: cephALEXin [Keflex] 500 mg PO TID 7 Days #21 cap Acetaminophen/HYDROcodone [Sterling 325-5 MG] 1 dose PO Q4H #20 tablet Referrals: Tc Emanuel MD [Primary Care Provider] - Forms: ED Department Discharge Sepsis Event Note (ED) - Evaluation Sepsis Screening Result: No Definite Risk - Focused Exam Vital Signs: Vital Signs Temp Pulse Resp BP Pulse Ox 02/19/20 20:13 96.3 F L 92 19 149/87 H 95 - My Orders Last 24 Hours: My Active Orders 02/19/20 20:15 Sodium Chloride 0.9% [Saline Flush] 10 ml FLUSH ASDIRECTED PRN Sodium Chloride 0.9% [Saline Flush] 2.5 ml FLUSH ASDIRECTED PRN Blood Culture x2 Reflex Set [OM.PC] Stat Saline Lock Insert [OM.PC] Stat 02/19/20 20:20 CULTURE BLOOD [BC] Stat 02/19/20 20:30 CULTURE BLOOD [BC] Stat 02/19/20 21:07 Admission Status [Patient Status] [ADT] Stat 02/19/20 21:08 CORONAVIRUS COVID-19 PCR PHL Stat 02/19/20 21:17 Sodium Chloride 0.9% [Normal Saline] 1,000 ml IV STAT - Assessment/Plan Last 24 Hours: My Active Orders 02/19/20 20:15 Sodium Chloride 0.9% [Saline Flush] 10 ml FLUSH ASDIRECTED PRN Sodium Chloride 0.9% [Saline Flush] 2.5 ml FLUSH ASDIRECTED PRN Blood Culture x2 Reflex Set [OM.PC] Stat Saline Lock Insert [OM.PC] Stat 02/19/20 20:20 CULTURE BLOOD [BC] Stat 02/19/20 20:30 CULTURE BLOOD [BC] Stat 02/19/20 21:07 Admission Status [Patient Status] [ADT] Stat 02/19/20 21:08 CORONAVIRUS COVID-19 PCR PHL Stat 02/19/20 21:17 Sodium Chloride 0.9% [Normal Saline] 1,000 ml IV STAT
[2020-02-19 20:50] LABS: BLOOD UREA NITROGEN,BUN 22 mg/dL (7.0-18.0); CARBON DIOXIDE,CO2 29.7 mmol/L (21.0-32.0); CHLORIDE,CL 96 mmol/L (98-107); GLUCOSE RANDOM 146 mg/dL (74-106); POTASSIUM,K 3.8 mmol/L (3.5-5.1); SODIUM,NA 135 mmol/L (136-148)
--- NOTE | 2020-02-19 20:57 | CR ---
INDICATION: Cellulitis. History of osteomyelitis. COMPARISON: None. TECHNIQUE: Three views right foot. IMPRESSION: Mild swelling in the soft tissue stump for the transmetatarsal amputation which appears chronic. Irregular ankle oasis between the remnant of 2nd and 3rd metatarsal. No acute bony erosion or resorption. No soft tissue gas. Dictated by Camilo Coates MD @ Feb 19 2020 8:57PM Signed by Dr. Camilo Coates @ Feb 19 2020 8:57PM
[2020-02-19] MEDS ORDERED: Acetaminophen/HYDROcodone 325-5 MG Tab PO ONE (21:08)
[2020-02-19] MEDS ORDERED: Sodium Chloride 0.9% 1,000 ML IV ONE (21:17)
[2020-02-19] MEDS ORDERED: Cephalexin 500 MG Cap PO ONE (21:18)
[2020-02-19 21:56] VITALS: BP 115/87; PULSE 78
== END 2020-02-19 21:40 | disposition left against medical advice (07) ==
LOC: MW.ED 20:05 → MW.MS 21:07 → UNDOADMOB 21:07 → MW.ED 21:40
DX: L03.115 Cellulitis of right lower limb (principal); Z53.20 Procedure and treatment not carried out because of patient's decision for unspecified reasons; I10 Essential (primary) hypertension; E11.9 Type 2 diabetes mellitus without complications; Z79.84 Long term (current) use of oral hypoglycemic drugs; Z98.890 Other specified postprocedural states; Z88.5 Allergy status to narcotic agent; Z79.899 Other long term (current) drug therapy
CPT/HCPCS: 36415; 73630; 80053; 83605; 85025; 87040; 99283; A9270

== ENCOUNTER 2020-03-13 16:35 | Emergency (ER) | payer BC ==
--- NOTE | 2020-03-13 17:07 | EDM.PDOC ---
ED HPI GENERAL MEDICAL PROBLEM - General Chief Complaint: Lower Extremity Injury/Pain Stated Complaint: RT FT PAIN Time Seen by Provider: 03/13/20 16:40 Source of Information: Reports: Patient History Limitations: Reports: No Limitations - History of Present Illness INITIAL COMMENTS - FREE TEXT/NARRATIVE: Presents reporting right foot pain. The patient had a right partial foot amputation of his toes in 2011. A couple of other reconstructive surgeries after that. Since that time he has had phantom foot pain as well as some neuropathic pain. He has tried gabapentin and Lyrica in the past which were not efficacious and thus in the interim has been managed with tramadol every 4 hours. He states that most of the time he does not take that much in a day but in the last 3 weeks he has been taking the Tramadol every 4 hours. In the last couple days that has been inadequate. He has diabetes which has been well controlled on diet and weight management. His hemoglobin A1c was 5.1 but has increased a little bit up to 5.9 a couple of weeks ago. He states that he has a recurrent ulcer on the distal plantar stub of his right foot. An appointment with Dr. Gallegos, podiatry next week. The ulcer has been superficial, clean and dry and he does not feel that his pain is skin related. No fever or constitutional symptoms. Right Foot Pain Score (Numeric/FACES): 9 - Related Data Allergies Allergy/AdvReac Type Severity Reaction Status Date / Time hydromorphone [From Dilaudid] Allergy Hallucinati Verified 03/13/20 17:03 ons Home Meds: Home Meds Lisinopril 10 mg PO DAILY 03/01/14 [History] amLODIPine [Norvasc] 10 mg PO DAILY 03/01/14 [History] hydroCHLOROthiazide [Hydrochlorothiazide] 25 mg PO DAILY 03/01/14 [History] metFORMIN HCl [Metformin ER Osmotic] 500 mg PO DAILY 03/01/14 [History] carvediloL [Carvedilol] 25 mg PO BID 07/24/17 [History] traMADol HCl [Tramadol HCl] 50 mg PO Q6H PRN 08/16/17 [History] Hydrocodone/Acetaminophen [Hydrocodone-Acetamin 5-325 mg] 1 tab PO Q6HR 7 Days #30 tablet 03/13/20 [Rx] atorvaSTATin [Lipitor] 40 mg PO DAILY 03/13/20 [History] Past Medical History HEENT History: Reports: None Cardiovascular History: Reports: Hypertension Respiratory History: Reports: None Gastrointestinal History: Reports: None Genitourinary History: Reports: None Musculoskeletal History: Reports: Amputation, Arthritis, Fracture Other Musculoskeletal History: osteomyelitis Neurological History: Reports: Concussion, Head Trauma Psychiatric History: Reports: Addiction, Anxiety Endocrine/Metabolic History: Reports: Diabetes, Type II Dermatologic History: Reports: Cellulitis, Chronic Cellulitis - Infectious Disease History Infectious Disease History: Reports: MRSA - Past Surgical History Head Surgeries/Procedures: Reports: None Musculoskeletal Surgical History: Reports: Amputation Other Musculoskeletal Surgeries/Procedures:: right transverse metatarsal amputation Social & Family History - Family History Family Medical History: Noncontributory HEENT: Reports: None - Caffeine Use Caffeine Use: Reports: Coffee Review of Systems - Review of Systems Review Of Systems: Comprehensive ROS is negative, except as noted in HPI. ED EXAM, GENERAL - Physical Exam Exam: See Below Exam Limited By: No Limitations General Appearance: Alert, No Apparent Distress Ears: Normal External Exam Nose: Normal Inspection Throat/Mouth: Normal Inspection Head: Atraumatic, Normocephalic Neck: Normal Inspection Respiratory/Chest: No Respiratory Distress, Lungs Clear, Normal Breath Sounds Cardiovascular: Normal Peripheral Pulses, Regular Rate, Rhythm, No Edema, No Murmur Back Exam: Normal Inspection Extremities: Other (Right foot full range of motion of the ankle without hesitation or limitation. No erythema, ecchymosis or swelling. Pedal pulse strong. 1 cm superficial open area on distal plantar stump that is clean dry and without erythema swelling or discharge.) Neurological: Alert, Oriented, Normal Cognition Psychiatric: Normal Affect, Normal Mood Skin Exam: Warm, Dry, Intact, Normal Color, No Rash Lymphatic: No Adenopathy Course - Vital Signs Last Recorded V/S: Last Vital Signs Temp 35.7 C L 03/13/20 16:50 Pulse 86 03/13/20 16:50 Resp 20 03/13/20 16:50 BP 164/89 H 03/13/20 16:50 Pulse Ox 96 03/13/20 16:50 Departure - Departure Time of Disposition: 17:24 Disposition: Home, Self-Care 01 Condition: Good Clinical Impression: Neuropathic pain - Discharge Information *PRESCRIPTION DRUG MONITORING PROGRAM REVIEWED*: Yes *COPY OF PRESCRIPTION DRUG MONITORING REPORT IN PATIENT DRU: Yes Prescriptions: Hydrocodone/Acetaminophen [Hydrocodone-Acetamin 5-325 mg] 1 tab PO Q6HR 7 Days #30 tablet Referrals: Tc Emanuel MD [Primary Care Provider] - Forms: ED Department Discharge Additional Instructions: The following information is given to patients seen in the emergency department who are being discharged to home. This information is to outline your options for follow-up care. We provide all patients seen in our emergency department with a follow-up referral. The need for follow-up, as well as the timing and circumstances, are variable depending upon the specifics of your emergency department visit. If you don't have a primary care physician on staff, we will provide you with a referral. We always advise you to contact your personal physician following an emergency department visit to inform them of the circumstance of the visit and for follow-up with them and/or the need for any referrals to a consulting specialist. The emergency department will also refer you to a specialist when appropriate. This referral assures that you have the opportunity for follow-up care with a specialist. All of these measure are taken in an effort to provide you with optimal care, which includes your follow-up. Under all circumstances we always encourage you to contact your private physician who remains a resource for coordinating your care. When calling for follow-up care, please make the office aware that this follow-up is from your recent emergency room visit. If for any reason you are refused follow-up, please contact the [facility] Emergency Department at and asked to speak to the emergency department charge nurse. 1. Follow up with podiatry next week as previously scheduled 2. Up with pain clinic upon your return to [place] 3. Guard against constipation. You may want to take docusate once or twice a day as a stool softener Sepsis Event Note (ED) - Evaluation Sepsis Screening Result: No Definite Risk - Focused Exam Vital Signs: Vital Signs Temp Pulse Resp BP Pulse Ox 03/13/20 16:50 35.7 C L 86 20 164/89 H 96
[2020-03-13 17:54] VITALS: BP 156/85; PULSE 84
== END 2020-03-13 17:45 | disposition home or self-care (01) ==
LOC: MW.ED 16:35
DX: M79.2 Neuralgia and neuritis, unspecified (principal); E11.42 Type 2 diabetes mellitus with diabetic polyneuropathy; I10 Essential (primary) hypertension; Z79.899 Other long term (current) drug therapy; Z88.5 Allergy status to narcotic agent
CPT/HCPCS: 99282; 99283

== ENCOUNTER 2020-05-09 13:57 | Emergency (ER) | payer BC, OTHER ==
[2020-05-09] MEDS ORDERED: Sodium Chloride 0.9% 1,000 ML IV ONE (14:18)
--- NOTE | 2020-05-09 15:00 | CR ---
INDICATION: SOB TECHNIQUE: Chest 1 view. COMPARISON: 03/01/15 FINDINGS: Cardiovascular and mediastinum: Heart size and vasculature are normal in caliber and appearance. Mediastinum is within normal limits. Lungs and pleural space: Lungs are clear. No sign of infiltrate or mass. No sign of pleural effusion. No pneumothorax. Bones and soft tissues: No significant findings. IMPRESSION: Unremarkable chest. Dictated by: Odell Chapman MD @ 05/09/2020 14:58:19 (Electronically Signed)
[2020-05-09 15:11] LABS: BLOOD UREA NITROGEN,BUN 21 mg/dL (7.0-18.0); CARBON DIOXIDE,CO2 28.3 mmol/L (21.0-32.0); CHLORIDE,CL 101 mmol/L (98-107); GLUCOSE RANDOM 157 mg/dL (74-106); SODIUM,NA 140 mmol/L (136-148)
--- NOTE | 2020-05-09 15:16 | EDM.PDOC ---
ED HPI GENERAL MEDICAL PROBLEM - General Chief Complaint: Diabetic Complaint Stated Complaint: POSSIBLE DIABETES COMPLICATION Time Seen by Provider: 05/09/20 14:09 Source of Information: Reports: Patient History Limitations: Reports: No Limitations - History of Present Illness INITIAL COMMENTS - FREE TEXT/NARRATIVE: HISTORY AND PHYSICAL: History of present illness: Patient is a 49-year-old male who presents to the emergency room with complaints of feeling slightly confused and diaphoretic. Reports that his "made me come" as she is concerned that his blood sugar could be too high. Patient does have a history of type 2 diabetes and takes Metformin for this routinely. He states he stopped checking his blood sugars as they have been running "so good lately". He denies any recent dietary changes and is been compliant with his medications. History of partial amputation of the right foot and has been receiving medical attention for a healing ulcer to the bottom of that right foot. His does dressing changes daily for him. He recently finished Keflex for a cellulitis surrounding the ulceration. He has noticed some mild swelling to the right lower extremity but is "better today". Patient denies any recent injury/trauma/falls, headache, change in vision, syncope or near syncope. Denies any chest pain, back pain, shortness of breath or cough. Denies any abdominal pain, nausea, vomiting, diarrhea, constipation or dysuria. Has not noted any blood in urine or stool. Patient has been eating and drinking appropriately. Review of systems: As per history of present illness and below otherwise all systems reviewed and negative. Past medical history: As per history of present illness and as reviewed below otherwise noncontributory. Surgical history: As per history of present illness and as reviewed below otherwise noncontributory. Social history: See social history for further information Family history: As per history of present illness and as reviewed below otherwise noncontributory. Physical exam: General: Well developed and well nourished. Alert and orientated x 3. Nontoxic in appearance and in no acute distress. Vital signs are stable and have been reviewed by me. Nursing notes were reviewed. HEENT: Atraumatic, normocephalic, pupils equal and reactive bilaterally, negative for conjunctival pallor or scleral icterus, mucous membranes moist, TMs normal bilaterally, throat clear, neck supple, nontender, trachea midline. No drooling or trismus noted. No meningeal signs. No hot potato voice noted. Lungs: Clear to auscultation, breath sounds equal bilaterally, chest nontender. Normal work of breathing, no accessory muscles used. Heart: S1S2, regular rate and rhythm without overt murmur Abdomen: Soft, nondistended, nontender. Negative for masses or hepatosplenomegaly. Negative for costovertebral tenderness. Pelvis: Stable nontender. No testicular pain, redness or swelling. Skin: Diffuse erythema noted to the right anterior walters down to the top of his foot surrounding the healing ulceration. Otherwise remaining skin is intact, warm, and diaphoretic. No lesions or rashes noted. Hematologic: No petechiae or purpra. Mucosa appropriate color and normal nail bed color and refill. Extremities: Atraumatic, moves all extremities per self without difficulty or deficits, partial amputation of the foot on the right with an well appearing healing ulceration. Negative for cords or calf pain. Neurovascular unremarkable. Neuro: Awake, alert, oriented. Cranial nerves II through XII unremarkable. Cerebellum unremarkable. Motor and sensory unremarkable throughout. Exam nonfocal. Psychiatric: Mood and affect are appropriate. Normal thought process. Answering questions appropriately. Notes: Patient does have a leukocytosis which I believe is due to the cellulitis of the right lower extremity. Blood cultures and lactic have been added. Negative head CT. CT of the chest shows a few scattered bilateral small ground pulmonary nodules, largest measuring 12 x 8 mm in the left lower lobe. These are nonspecific and could be infectious/inflammatory etiology, although neoplasm cannot be excluded. No evidence of pulmonary thromboembolism. I did discuss with patient about admission which he is initially hesitant but agreeable. Patient is requesting to leave AGAINST MEDICAL ADVICE regardless of all the risks being reviewed with the patient. We discussed the possible loss of limb, sepsis, and even if this infection does not get treated appropriately/aggressively. Patient states that he has his [employer] packed up and is planning to move to [place]. "We were supposed to leave today, but we came here to get checked out first." He wants to get treated in [place]. I will give him a script for Clindamycin and encouraged him to see a provider IMMEDIATELY when he gets to his destination. He knows he is leaving against medical advice. Diagnostics: CBC, CMP, Lactic, VBG, UA, Drug Screen, EKG, CXR, COVID Therapeutics: IV fluids, vancomycin, Zosyn Prescription: Clindamycin Impression: AGAINST MEDICAL ADVICE Cellulitis Plan: 1. You are leaving against medical advice. Please make sure you continue to m onitor the lower extremity for signs of improvement. If the symptoms get worse, new symptoms develop or any of the symptoms we discussed present, please go to the nearest emergency room for reevaluation. 2. Please take the medication as directed. You can alternate Tylenol and ibuprofen as needed for pain management.2. 3. Follow-up with your primary care provider as we discussed. Definitive disposition and diagnosis as appropriate pending reevaluation and review of above. - Related Data Allergies Allergy/AdvReac Type Severity Reaction Status Date / Time hydromorphone [From Dilaudid] Allergy Hallucinati Verified 05/09/20 14:27 ons Home Meds: Home Meds Lisinopril 10 mg PO DAILY 03/01/14 [History] amLODIPine [Norvasc] 10 mg PO DAILY 03/01/14 [History] hydroCHLOROthiazide [Hydrochlorothiazide] 25 mg PO DAILY 03/01/14 [History] metFORMIN HCl [Metformin ER Osmotic] 500 mg PO DAILY 03/01/14 [History] carvediloL [Carvedilol] 25 mg PO BID 07/24/17 [History] traMADol HCl [Tramadol HCl] 50 mg PO Q6H PRN 08/16/17 [History] atorvaSTATin [Lipitor] 40 mg PO DAILY 03/13/20 [History] clindamycin HCL [Cleocin HCl] 300 mg PO TID 7 Days #21 capsule 05/09/20 [Rx] Past Medical History HEENT History: Reports: None Cardiovascular History: Reports: Hypertension Respiratory History: Reports: None Gastrointestinal History: Reports: None Genitourinary History: Reports: None Musculoskeletal History: Reports: Amputation, Arthritis, Fracture Other Musculoskeletal History: osteomyelitis Neurological History: Reports: Concussion, Head Trauma Psychiatric History: Reports: Addiction, Anxiety Endocrine/Metabolic History: Reports: Diabetes, Type II Hematologic History: Reports: None Immunologic History: Reports: None Oncologic (Cancer) History: Reports: None Dermatologic History: Reports: Cellulitis, Chronic Cellulitis - Infectious Disease History Infectious Disease History: Reports: MRSA - Past Surgical History Head Surgeries/Procedures: Reports: None Musculoskeletal Surgical History: Reports: Amputation Other Musculoskeletal Surgeries/Procedures:: right transverse metatarsal amputation Social & Family History - Family History Family Medical History: Noncontributory HEENT: Reports: None - Tobacco Use Tobacco Use Status *Q: Light Tobacco User Years of Tobacco use: 10 Packs/Tins Daily: 0 - Caffeine Use Caffeine Use: Reports: Coffee - Recreational Drug Use Recreational Drug Use: Yes Recreational Drug Type: Reports: Marijuana/Hashish Recreational Drug Use Frequency: Socially ED ROS GENERAL - Review of Systems Review Of Systems: Comprehensive ROS is negative, except as noted in HPI. ED EXAM GENERAL NO PERIP PULSE - Physical Exam Exam: See Below (See dictation) Course - Vital Signs Last Recorded V/S: Last Vital Signs Temp 98.3 F 05/09/20 15:38 Pulse 91 05/09/20 15:38 Resp 16 05/09/20 15:38 BP 128/62 05/09/20 15:38 Pulse Ox 95 05/09/20 15:38 - Orders/Labs/Meds Orders: Active Orders 24 hr Category Date Time Status Admission Status [Patient Status] [ADT] Stat ADT 05/09/20 17:51 Active Blood Glucose Check, Bedside [RC] ONETIME Care 05/09/20 14:18 Active EKG Documentation Completion [RC] STAT Care 05/09/20 14:18 Active Ankle Min 3V Rt [CR] Stat Exams 05/09/20 17:49 Ordered CORONAVIRUS COVID-19 PCR PHL Stat Lab 05/09/20 16:20 Received CULTURE BLOOD [BC] Stat Lab 05/09/20 15:37 Received CULTURE BLOOD [BC] Stat Lab 05/09/20 16:25 Received Vancomycin 1 gm Med 05/09/20 17:48 Active Sodium Chloride 0.9% [Normal Saline (AdvBag)] 250 ml IV ONETIME Blood Culture x2 Reflex Set [OM.PC] Stat Oth 05/09/20 15:10 Ordered Medication Orders Vancomycin HCl 1 gm/ Sodium (Chloride) 250 mls @ 166 mls/hr IV ONETIME ONE Stop: 05/09/20 19:18 Labs: Laboratory Tests 05/09/20 05/09/20 05/09/20 Range/Units 13:30 13:30 13:30 WBC 13.37 H (4.0-11.0) K/uL RBC 4.15 L (4.50-5.90) M/uL Hgb 11.5 L (13.0-17.0) g/dL Hct 35.7 L (38.0-50.0) % MCV 86.0 (80.0-98.0) fL MCH 27.7 (27.0-32.0) pg MCHC 32.2 (31.0-37.0) g/dL RDW Std Deviation 40.8 (28.0-62.0) fl RDW Coeff of [place] 13 (11.0-15.0) % Plt Count 272 (150-400) K/uL MPV 9.70 (7.40-12.00) fL Neut % (Auto) 70.2 (48.0-80.0) % Lymph % (Auto) 17.1 (16.0-40.0) % [place] % (Auto) 11.4 (0.0-15.0) % Eos % (Auto) 1.0 (0.0-7.0) % Baso % (Auto) 0.3 (0.0-1.5) % Neut # (Auto) 9.4 H (1.4-5.7) K/uL Lymph # (Auto) 2.3 (0.6-2.4) K/uL [place] # (Auto) 1.5 H (0.0-0.8) K/uL Eos # (Auto) 0.1 (0.0-0.7) K/uL Baso # (Auto) 0.0 (0.0-0.1) K/uL Nucleated RBC % 0.0 /100WBC Nucleated RBCs # 0 K/uL D-Dimer, Quantitative (0.0-0.50) mg/L FEU VBG pH 7.38 (7.31-7.41) VBG pCO2 53 H (35-45) mmHG VBG pO2 33 (30-40) mmHG VBG HCO3 31 H (22-30) mEq/L VBG Total CO2 29 L (41-51) mmol/L VBG Base Excess 4.4 H (-3.0-3.0) Lactate (0.20-2.00) mmol/L Sodium 140 (136-148) mmol/L Potassium 4.0 (3.5-5.1) mmol/L Chloride 101 (98-107) mmol/L Carbon Dioxide 28.3 (21.0-32.0) mmol/L BUN 21 H (7.0-18.0) mg/dL Creatinine 1.0 (0.8-1.3) mg/dL Est Cr Clr Drug Dosing 91.25 mL/min Estimated GFR (MDRD) > 60.0 ml/min Glucose 157 H (74-106) mg/dL POC Glucose (60-110) mg/dL Calcium 8.9 (8.5-10.1) mg/dL Total Bilirubin 0.4 (0.2-1.0) mg/dL AST 26 (15-37) IU/L ALT 34 (14-63) IU/L Alkaline Phosphatase 117 H (46-116) U/L Troponin I < 0.050 (0.000-0.056) ng/mL Total Protein 7.9 (6.4-8.2) g/dL Albumin 3.6 (3.4-5.0) g/dL Globulin 4.3 H (2.6-4.0) g/dL Albumin/Globulin Ratio 0.8 L (0.9-1.6) Urine Color Urine Appearance Urine pH (5.0-8.0) Ur Specific [place] (1.001-1.035) Urine Protein (NEGATIVE) mg/dL Urine Glucose (UA) (NEGATIVE) mg/dL Urine Ketones (NEGATIVE) mg/dL Urine Occult Blood (NEGATIVE) Urine Nitrite (NEGATIVE) Urine Bilirubin (NEGATIVE) Urine Urobilinogen (<2.0) EU/dL Ur Leukocyte Esterase (NEGATIVE) Urine Opiates Screen (NEGATIVE) Ur Oxycodone Screen (NEGATIVE) Urine Methadone Screen (NEGATIVE) Ur Barbiturates Screen (NEGATIVE) Ur Phencyclidine Scrn (NEGATIVE) Ur Amphetamine Screen (NEGATIVE) U Methamphetamines Scrn (NEGATIVE) U Benzodiazepines Scrn (NEGATIVE) U Cocaine Metab Screen (NEGATIVE) U Marijuana (THC) Screen (NEGATIVE) SARS CoV-2 RNA Rapid EUNICE (NEGATIVE) 05/09/20 05/09/20 05/09/20 Range/Units 14:13 14:13 14:27 WBC (4.0-11.0) K/uL RBC (4.50-5.90) M/uL Hgb (13.0-17.0) g/dL Hct (38.0-50.0) % MCV (80.0-98.0) fL MCH (27.0-32.0) pg MCHC (31.0-37.0) g/dL RDW Std Deviation (28.0-62.0) fl RDW Coeff of [place] (11.0-15.0) % Plt Count (150-400) K/uL MPV (7.40-12.00) fL Neut % (Auto) (48.0-80.0) % Lymph % (Auto) (16.0-40.0) % [place] % (Auto) (0.0-15.0) % Eos % (Auto) (0.0-7.0) % Baso % (Auto) (0.0-1.5) % Neut # (Auto) (1.4-5.7) K/uL Lymph # (Auto) (0.6-2.4) K/uL [place] # (Auto) (0.0-0.8) K/uL Eos # (Auto) (0.0-0.7) K/uL Baso # (Auto) (0.0-0.1) K/uL Nucleated RBC % /100WBC Nucleated RBCs # K/uL D-Dimer, Quantitative 0.56 H (0.0-0.50) mg/L FEU VBG pH (7.31-7.41) VBG pCO2 (35-45) mmHG VBG pO2 (30-40) mmHG VBG HCO3 (22-30) mEq/L VBG Total CO2 (41-51) mmol/L VBG Base Excess (-3.0-3.0) Lactate (0.20-2.00) mmol/L Sodium (136-148) mmol/L Potassium (3.5-5.1) mmol/L Chloride (98-107) mmol/L Carbon Dioxide (21.0-32.0) mmol/L BUN (7.0-18.0) mg/dL Creatinine (0.8-1.3) mg/dL Est Cr Clr Drug Dosing mL/min Estimated GFR (MDRD) ml/min Glucose (74-106) mg/dL POC Glucose (60-110) mg/dL Calcium (8.5-10.1) mg/dL Total Bilirubin (0.2-1.0) mg/dL AST (15-37) IU/L ALT (14-63) IU/L Alkaline Phosphatase (46-116) U/L Troponin I (0.000-0.056) ng/mL Total Protein (6.4-8.2) g/dL Albumin (3.4-5.0) g/dL Globulin (2.6-4.0) g/dL Albumin/Globulin Ratio (0.9-1.6) Urine Color YELLOW Urine Appearance CLEAR Urine pH 5.5 (5.0-8.0) Ur Specific [place] >= 1.030 (1.001-1.035) Urine Protein NEGATIVE (NEGATIVE) mg/dL Urine Glucose (UA) NEGATIVE (NEGATIVE) mg/dL Urine Ketones NEGATIVE (NEGATIVE) mg/dL Urine Occult Blood NEGATIVE (NEGATIVE) Urine Nitrite NEGATIVE (NEGATIVE) Urine Bilirubin NEGATIVE (NEGATIVE) Urine Urobilinogen 0.2 (<2.0) EU/dL Ur Leukocyte Esterase NEGATIVE (NEGATIVE) Urine Opiates Screen NEGATIVE (NEGATIVE) Ur Oxycodone Screen NEGATIVE (NEGATIVE) Urine Methadone Screen NEGATIVE (NEGATIVE) Ur Barbiturates Screen NEGATIVE (NEGATIVE) Ur Phencyclidine Scrn NEGATIVE (NEGATIVE) Ur Amphetamine Screen NEGATIVE (NEGATIVE) U Methamphetamines Scrn NEGATIVE (NEGATIVE) U Benzodiazepines Scrn NEGATIVE (NEGATIVE) U Cocaine Metab Screen NEGATIVE (NEGATIVE) U Marijuana (THC) Screen NEGATIVE (NEGATIVE) SARS CoV-2 RNA Rapid EUNICE (NEGATIVE) 05/09/20 05/09/20 05/09/20 Range/Units 14:30 16:20 16:25 WBC (4.0-11.0) K/uL RBC (4.50-5.90) M/uL Hgb (13.0-17.0) g/dL Hct (38.0-50.0) % MCV (80.0-98.0) fL MCH (27.0-32.0) pg MCHC (31.0-37.0) g/dL RDW Std Deviation (28.0-62.0) fl RDW Coeff of [place] (11.0-15.0) % Plt Count (150-400) K/uL MPV (7.40-12.00) fL Neut % (Auto) (48.0-80.0) % Lymph % (Auto) (16.0-40.0) % [place] % (Auto) (0.0-15.0) % Eos % (Auto) (0.0-7.0) % Baso % (Auto) (0.0-1.5) % Neut # (Auto) (1.4-5.7) K/uL Lymph # (Auto) (0.6-2.4) K/uL [place] # (Auto) (0.0-0.8) K/uL Eos # (Auto) (0.0-0.7) K/uL Baso # (Auto) (0.0-0.1) K/uL Nucleated RBC % /100WBC Nucleated RBCs # K/uL D-Dimer, Quantitative (0.0-0.50) mg/L FEU VBG pH (7.31-7.41) VBG pCO2 (35-45) mmHG VBG pO2 (30-40) mmHG VBG HCO3 (22-30) mEq/L VBG Total CO2 (41-51) mmol/L VBG Base Excess (-3.0-3.0) Lactate 0.7 (0.20-2.00) mmol/L Sodium (136-148) mmol/L Potassium (3.5-5.1) mmol/L Chloride (98-107) mmol/L Carbon Dioxide (21.0-32.0) mmol/L BUN (7.0-18.0) mg/dL Creatinine (0.8-1.3) mg/dL Est Cr Clr Drug Dosing mL/min Estimated GFR (MDRD) ml/min Glucose (74-106) mg/dL POC Glucose 139 H (60-110) mg/dL Calcium (8.5-10.1) mg/dL Total Bilirubin (0.2-1.0) mg/dL AST (15-37) IU/L ALT (14-63) IU/L Alkaline Phosphatase (46-116) U/L Troponin I (0.000-0.056) ng/mL Total Protein (6.4-8.2) g/dL Albumin (3.4-5.0) g/dL Globulin (2.6-4.0) g/dL Albumin/Globulin Ratio (0.9-1.6) Urine Color Urine Appearance Urine pH (5.0-8.0) Ur Specific [place] (1.001-1.035) Urine Protein (NEGATIVE) mg/dL Urine Glucose (UA) (NEGATIVE) mg/dL Urine Ketones (NEGATIVE) mg/dL Urine Occult Blood (NEGATIVE) Urine Nitrite (NEGATIVE) Urine Bilirubin (NEGATIVE) Urine Urobilinogen (<2.0) EU/dL Ur Leukocyte Esterase (NEGATIVE) Urine Opiates Screen (NEGATIVE) Ur Oxycodone Screen (NEGATIVE) Urine Methadone Screen (NEGATIVE) Ur Barbiturates Screen (NEGATIVE) Ur Phencyclidine Scrn (NEGATIVE) Ur Amphetamine Screen (NEGATIVE) U Methamphetamines Scrn (NEGATIVE) U Benzodiazepines Scrn (NEGATIVE) U Cocaine Metab Screen (NEGATIVE) U Marijuana (THC) Screen (NEGATIVE) SARS CoV-2 RNA Rapid EUNICE NEGATIVE (NEGATIVE) Meds: Medications Generic Name Dose Route Start Last Admin Trade Name Freq PRN Reason Stop Dose Admin Vancomycin HCl 1 gm/ Sodium 250 mls @ 166 mls/hr 05/09/20 17:48 Chloride IV 05/09/20 19:18 ONETIME ONE Discontinued Medications Generic Name Dose Route Start Last Admin Trade Name Freq PRN Reason Stop Dose Admin Sodium Chloride 1,000 mls @ 999 mls/hr 05/09/20 14:18 05/09/20 14:30 Normal Saline IV 05/09/20 15:18 999 mls/hr STAT ONE Administration Iopamidol 75 ml 05/09/20 17:15 05/09/20 17:33 Isovue Multipack-370 (76%) IVPUSH 05/09/20 17:16 75 ml ONETIME STA Administration Departure - Departure Time of Disposition: 18:01 Disposition: Against Medical Advice 07 Clinical Impression: Left against medical advice Cellulitis Qualifiers: Site of cellulitis: extremity Site of cellulitis of extremity: lower extremity Laterality: right Qualified Code(s): L03.115 - Cellulitis of right lower limb - Discharge Information Prescriptions: clindamycin HCL [Cleocin HCl] 300 mg PO TID 7 Days #21 capsule Instructions: Cellulitis, Adult, [id number] Referrals: Tc Emanuel MD [Primary Care Provider] - Forms: ED Department Discharge Additional Instructions: The following information is given to patients seen in the emergency department who are being discharged to home. This information is to outline your options for follow-up care. We provide all patients seen in our emergency department with a follow-up referral. The need for follow-up, as well as the timing and circumstances, are variable depending upon the specifics of your emergency department visit. If you don't have a primary care physician on staff, we will provide you with a referral. We always advise you to contact your personal physician following an emergency department visit to inform them of the circumstance of the visit and for follow-up with them and/or the need for any referrals to a consulting specialist. The emergency department will also refer you to a specialist when appropriate. This referral assures that you have the opportunity for follow-up care with a specialist. All of these measure are taken in an effort to provide you with optimal care, which includes your follow-up. Under all circumstances we always encourage you to contact your private physician who remains a resource for coordinating your care. When calling for follow-up care, please make the office aware that this follow-up is from your recent emergency room visit. If for any reason you are refused follow-up, please contact the [facility] Emergency Department at and asked to speak to the emergency department charge nurse. [facility] [address] [place] [address] [place] [address] Thank you for choosing the [facility] emergency department in [place] for your medical needs today. It was a pleasure caring for you. Today you were seen in the emergency department for diabetes evaluation and cellulitis. 1. You are leaving against medical advice. Please make sure you continue to monitor the lower extremity for signs of improvement. If the symptoms get worse, new symptoms develop or any of the symptoms we discussed present, please go to the nearest emergency room for reevaluation. 2. Please take the medication as directed. You can alternate Tylenol and ib uprofen as needed for pain management.2. 3. Follow-up with your primary care provider as we discussed. Sepsis Event Note (ED) - Evaluation Sepsis Screening Result: No Definite Risk - Focused Exam Vital Signs: Vital Signs Temp Pulse Resp BP Pulse Ox 05/09/20 15:38 98.3 F 91 16 128/62 95 05/09/20 14:20 97.8 F 105 H 18 173/85 H 93 L - My Orders Last 24 Hours: My Active Orders 05/09/20 14:18 Blood Glucose Check, Bedside [RC] ONETIME EKG Documentation Completion [RC] STAT 05/09/20 15:10 Blood Culture x2 Reflex Set [OM.PC] Stat 05/09/20 15:37 CULTURE BLOOD [BC] Stat 05/09/20 16:20 CORONAVIRUS COVID-19 PCR PHL Stat 05/09/20 16:25 CULTURE BLOOD [BC] Stat 05/09/20 17:48 Vancomycin 1 gm Sodium Chloride 0.9% [Normal Saline (AdvBag)] 250 ml IV ONETIME 05/09/20 17:49 Ankle Min 3V Rt [CR] Stat 05/09/20 17:51 Admission Status [Patient Status] [ADT] Stat - Assessment/Plan Last 24 Hours: My Active Orders 05/09/20 14:18 Blood Glucose Check, Bedside [RC] ONETIME EKG Documentation Completion [RC] STAT 05/09/20 15:10 Blood Culture x2 Reflex Set [OM.PC] Stat 05/09/20 15:37 CULTURE BLOOD [BC] Stat 05/09/20 16:20 CORONAVIRUS COVID-19 PCR PHL Stat 05/09/20 16:25 CULTURE BLOOD [BC] Stat 05/09/20 17:48 Vancomycin 1 gm Sodium Chloride 0.9% [Normal Saline (AdvBag)] 250 ml IV ONETIME 05/09/20 17:49 Ankle Min 3V Rt [CR] Stat 05/09/20 17:51 Admission Status [Patient Status] [ADT] Stat
--- NOTE | 2020-05-09 15:23 | PCM.SN.2 ---
- Free Text/Narrative Note: Heart rate = 81 bpm, normal sinus rhythm, normal QRS interval, no STEMI. EKG and rhythm strip interpreted by me at 1423
[2020-05-09 15:40] VITALS: BP 128/62; PULSE 91
--- NOTE | 2020-05-09 16:32 | CT ---
INDICATION: Confusion. Altered mental status. COMPARISON: None TECHNIQUE: CT examination of the head was performed as axial sections without intravenous contrast. Images were obtained from the vertex of the skull through the skull base. Please note that all CT scans at this facility use dose modulation, iterative reconstruction, and/or weight-based dosing when appropriate to reduce radiation dose to as low as reasonably achievable. FINDINGS: The brain shows no sign of mass lesion, mass effect, hemorrhage, or edema. The ventricles and sulci are normal in appearance for the patient`s age. The visualized portions of the orbits are normal in appearance. The osseous structures are normal in their appearance with no sign of abnormality in the skull base or calvarium. IMPRESSION: Normal unenhanced head CT. Please note that all CT scans at this facility use dose modulation, iterative reconstruction, and/or weight-based dosing when appropriate to reduce radiation dose to as low as reasonably achievable. Dictated by Fernandez Hendrickson MD @ May 09 2020 4:28PM Signed by Dr. Fernandez Hendrickson @ May 09 2020 4:31PM
--- NOTE | 2020-05-09 17:14 | CT ---
INDICATION: Elevated D-dimer TECHNIQUE: Contrast enhanced axial CT imaging through the chest, optimized for assessment of the pulmonary arterial tree. 75 mL Isovue 370 contrast agent was administered intravenously. Sagittal and coronal reconstructions are provided. COMPARISON: None FINDINGS: There is adequate opacification of the pulmonary arterial tree without evidence of thromboembolism. The main pulmonary artery is nondilated. The heart is non enlarged. Coronary artery calcification is noted. There is no pericardial effusion. There is normal caliber of the thoracic aorta. There is no mediastinal lymphadenopathy. There are several scattered small nodular ground-glass densities in the lower lobes and posterior right upper lobe, largest measuring 12 x 8 mm in the left lower lobe. There is no airspace consolidation, pleural effusion, or pneumothorax. The thoracic osseous structures are unremarkable. No significant abnormality is demonstrated in the visualized upper abdomen. IMPRESSION: 1. A few scattered bilateral small ground-glass pulmonary nodules, largest measuring 12 x 8 mm in the left lower lobe. These are nonspecific then may be of infectious/inflammatory etiology, although neoplasm is not excluded. Follow-up CT is recommended in three months for surveillance. 2. No evidence of pulmonary thromboembolism. Please note that all CT scans at this facility use dose modulation, iterative reconstruction, and/or weight-based dosing when appropriate to reduce radiation dose to as low as reasonably achievable. Dictated by Danuta Acuña MD @ May 09 2020 5:06PM (Electronically Signed)
[2020-05-09] MEDS ORDERED: Iopamidol 755 MG/ML 500 ML Multipack Bottle IVPUSH STA (17:15)
== END 2020-05-09 18:15 | disposition left against medical advice (07) ==
LOC: MW.ED 13:57
DX: L03.115 Cellulitis of right lower limb (principal); I10 Essential (primary) hypertension; E11.9 Type 2 diabetes mellitus without complications; F17.200 Nicotine dependence, unspecified, uncomplicated; Z88.5 Allergy status to narcotic agent; Z79.899 Other long term (current) drug therapy; Z20.828 Contact with and (suspected) exposure to other viral communicable diseases
CPT/HCPCS: 36415; 70450; 71045; 71275; 80053; 80305; 81003; 82803; 82962; 83605; 84484; 85025; 85379; 87040; 87635; 93005; 99285; J7030; Q9967; 93010; 99284; U0002